=== PATIENT | female | born 1955 | race Asian ===

== ENCOUNTER 2017-11-30 12:30 | Outpatient (RCR) | payer OTHER, SELFPAY ==
--- NOTE | 2017-11-11 08:32 | OT.OP.TRT ---
On November 08, 2017 our therapy services consisting of Speech, Occupational, and Physical therapy transitioned from [employer] electronic documentation system to a new [employer] electronic system. All documentation prior to November 08 can be found under [employer] saved data. From November 08 forward, all medical record documentation will be in [employer] 6.1.
--- NOTE | 2017-12-02 11:21 | OT.OP.TRT ---
Visit Care Team Role Provider Type Ruth Moe MD Attending Provider Non-Staff Primary Care Provider Specialty: Medical Address: [id number] [place] [address], [place], [address] Fax: Email: Occupational Therapy Treatment Note OT Outpatient Treatment Note - Adult Start: 11/23/17 12:51 Freq: Status: Active Protocol: Document 11/30/17 15:30 AMS (Rec: 12/02/17 11:21 AMS [id number]) OT Outpatient Adult Treatment Note Session Time Visit Start Time 12:30 Visit Stop Time 13:18 Total Visit Minutes 48 Visit Information Visit Number N/A Plan of Care Dates 10/11/17-01/02/18 Insurance Information Billing Code Restrictions - see paper chart Setting Treatment Setting Outpatient Care Visit Type Note Type Treatment Note General Information General Information Pt was referred to outpatient OT secondary to CVA. - Subjective Identification Type Name Identification Reconciled With Medical Record Others Present Family Observations I think I am more lactose intolerant now per Louise. Chief Complaint(s) Restricts Loss of Function Marked Degree Effect on Activity Marked Degree Effect on Daily Life Marked Degree Patient/Caregiver Compliance with Home Good Exercise Program Comments w/ family support - Objective Objective Measurements See progress towards goals. Improving tolerance for weight bearing through hand/UE noted . (+) reliance on right UE to move left UE. Decreased spontaneous movement/ incorporation of UE. Short Term Goals 1. Pt will demonstrate 10 degrees active L forearm pronation. 11/11/17= 25% met 2. Pt will demonstrate -20 degrees active L elbow extension. 3. Pt will be able to execute x 10 TT push-ups w/ active WB through left hand/UE w/ min phys assist and max v.c. = mod phys A. 4. Pt will be able to maintain left hand grasp on horizontal grab bar, while actively flexing and extending elbow ( pushing and pulling self towards and away from bar), x 10 trials, with CGA and max verbal/visual cues. 11/30/17= 25% met. Min phys assist 5. Based on self/caregiver report, pt will be able to complete UB dressing w/ CGA 5 out of 7 days w/ max v.c. = min to max phys A depending on day. Figure Model Goals 1. Based on self/caregiver verbal report, pt will be able to complete UB dressing w/ mod I on daily basis. - Treatment 1 Descriptor Functional Activities Standing bar weight shift L<-> R 1 x5 Standing bar weight shift for< ->back 1x10 Standing bar - orientation to midline 1 x 5 Grasp w/ s-s x 3 Tolerance Fair Complexity Upgraded Exercises 6 Descriptor PNF diagonals Side Left Body Position seated Sets 1 Repetitions 10 5 Descriptor Active ROM Sh flex Sh abd Sh ER Elbow ext Forearm pronation Side Left Body Position Sitting Sets 2 Repetitions 10 Complexity Upgraded 4 Descriptor Scapular Mobility Side Left Body Position Sitting 3 Descriptor Passive ROM Side Left Body Position Sitting 2 Descriptor Tone management - Standing 1 Descriptor Tone management - Sitting Side Left - Assessment Patient Response to Treatment Good Rehab Potential Fair Impairments Identified ADLs Attention Balance Coordination/Dexterity Functional Activities Memory Motor Function Weakness Posture Range of Motion Recreational Activities Meaningful Activities Spasticity Stiffness Safety Insight Work Capacity Motor Planning Eye-Hand Coordination Assessment of Overall Progress Improving Assessment of Improvement Improving terrie for WB w/ wrist in ext w/ vertical positioning of hand on wall. Improving functional grasp w/ use of horizontal bar. (+) reliance on right UE to move left UE. Decreased spontaneous movement /incorporation of UE. Home Exercise Program No changes to HEP made. Recommended continued focus on maintaining elbow extension w / grasping of bar/object (for functional mobility) and weight bearing tolerance/ bearing weight through hand. Reviewed with Patient/Caregiver Goals Progress Being Made Home Exercise Program Patient/Caregiver Understanding Good - Plan Therapy Recommendations Continue with Current Program Advance per Rehabilitation Protocol Additional Therapy Recommendations Consult w/ PT Please Sign and Return: I have reviewed this Plan of Care and certify that the skilled therapy services above are required to meet the patient???s needs. Physician Signature Date Printed Name and Credentials Clinical Instructor Signature Printed Name and Credentials
--- NOTE | 2017-12-28 13:20 | OT.OP.TRT ---
Visit Care Team Role Provider Type Ruth Moe MD Attending Provider Non-Staff Primary Care Provider Specialty: Medical Address: [address] [facility], [place], [address] Fax: Email: Occupational Therapy Treatment Note OT Outpatient Treatment Note - Adult Start: 11/23/17 12:51 Freq: Status: Active Protocol: Document 12/28/17 13:18 AMS (Rec: 12/28/17 13:20 AMS [id number]) OT Outpatient Adult Treatment Note Visit Type Note Type Administrative Note - Subjective Observations Phone call to patient made . Short voice mail requesting call back was left at telephone number provided [phone]. Therapist to follow-up as appropriate. - - - -
--- NOTE | 2017-12-29 11:33 | OT.OP.DC ---
Visit Care Team Role Provider Type Ruth Moe MD Attending Provider Non-Staff Primary Care Provider Address: [address] [place], [address] Fax: Email: OT Outpatient OT Outpatient Range of Motion Start: 11/11/17 11:45 Freq: Status: Active Protocol: Document 11/11/17 11:46 AMS (Rec: 11/11/17 12:04 AMS [id number]) OT Outpatient Adult Treatment Note Setting Treatment Setting Outpatient Care Visit Type Note Type Discharge Summary General Information General Information Pt was referred to outpatient OT secondary to CVA. - Subjective Observations Per outpatient clinic front desk assistant staff, patient indicated [id number] that she ' wants to be discharged'. - Objective ROM - Wrist Wrist Range of Motion Measured in Degrees Right Active ROM Testing Position Sitting Wrist Flex AROM (degrees) 0-60 Wrist Flex PROM (degrees) Not Tested Wrist Ext AROM Fingers Open (degrees) WNL Wrist Ext PROM Fingers Open (degrees) Not Tested Wrist Ext AROM Fingers Flexed (degrees) WNL Wrist Ext PROM Fingers Flexed (degrees) Not Tested Left Active ROM Testing Position Sitting Wrist Flex AROM (degrees) 0-40 Wrist Flex PROM (degrees) 0-60 Wrist Ext AROM Fingers Open (degrees) 0-0 Wrist Ext AROM Fingers Flexed (degrees) 0-0 Short Term Goals ALL GOALS DISCHARGED. DISCHARGE PER PATIENT REQUEST 1. Pt will demonstrate 10 degrees active L forearm pronation. 11/11/17= 25% met 2. Pt will demonstrate -20 degrees active L elbow extension. 3. Pt will be able to execute x 10 TT push-ups w/ active WB through left hand/UE w/ min phys assist and max v.c. = mod phys A. 4. Pt will be able to maintain left hand grasp on horizontal grab bar, while actively flexing and extending elbow ( pushing and pulling self towards and away from bar), x 10 trials, with CGA and max verbal/visual cues. 11/30/17= 25% met. Min phys assist 5. Based on self/caregiver report, pt will be able to complete UB dressing w/ CGA 5 out of 7 days w/ max v.c. = min to max phys A depending on day. Breaker Oiler Goals ALL GOALS DISCHARGED. DISCHARGE PER PATIENT REQUEST 1. Based on self/caregiver verbal report, pt will be able to complete UB dressing w/ mod I on daily basis. - - Assessment Assessment of Improvement Per outpatient clinic front desk assistant staff, patient indicated [id number] that she ' wants to be discharged'. Patient to be discharged from outpatient occupational therapy at this time. - Plan Therapy Recommendations Discharge to Home Exercise Program Discharge from Occupational Therapy Additional Therapy Recommendations Discharge per patient request
== END 2017-12-29 15:52 ==
LOC: OT 12:30
PROVIDERS: PCP Internal Medicine; Visit Provider Internal Medicine
DX: I63.9 Cerebral infarction, unspecified (principal); I69.354 Hemiplegia and hemiparesis following cerebral infarction affecting left non-dominant side; R27.8 Other lack of coordination; M62.81 Muscle weakness (generalized)
CPT/HCPCS: 97110; 97112; 97530

== ENCOUNTER 2017-11-30 13:45 | Outpatient (RCR) | payer OTHER, SELFPAY ==
--- NOTE | 2017-11-08 15:08 | PT.OTN ---
On November 08, 2017 our therapy services consisting of Speech, Occupational, and Physical therapy transitioned from [employer] electronic documentation system to a new [employer] electronic system. All documentation prior to November 08 can be found under [employer] saved data. From November 08 forward, all medical record documentation will be in [employer] 6.1.
--- NOTE | 2017-11-08 16:05 | PT.OTN ---
Physical Therapy Treatment Note PT-OP-A Visit Information Start: 11/08/17 15:46 Freq: Status: Active Protocol: Activity Type Activity Date Activity User E-Sign Co-Sign Detail Recorded Client Recorded Date Recorded By Document 11/08/17 14:50 [facility] [id number] 11/08/17 16:05 [facility] 11/08/17 14:50 Out-Patient Physical Therapy Visit Information [Visit Information] -Visit Type Treatment Note -Visit Start Time 14:30 -Visit Stop Time 15:15 -Total Visit Minutes 45 -Visit Number 25 -Number of ASSISTANT PROFESSOR OF PSYCHOLOGY Visits 0 [Evaluation Information] -Evaluation Date 07/14/17 PT-OP-C Subjective Start: 11/08/17 15:46 Freq: Status: Active Protocol: Activity Type Activity Date Activity User E-Sign Co-Sign Detail Recorded Client Recorded Date Recorded By Document 11/08/17 14:50 [facility] [id number] 11/08/17 16:05 [facility] 11/08/17 14:50 OP-PT Subjective [Patient Comments] -Patient Comments My arm is tired, my leg is tired, everything is tired. -Patient Reported Progress Same PT-OP-Q Treatments Start: 11/08/17 15:46 Freq: Status: Active Protocol: Activity Type Activity Date Activity User E-Sign Co-Sign Detail Recorded Client Recorded Date Recorded By Document 11/08/17 14:50 [facility] [id number] 11/08/17 16:05 [facility] 11/08/17 14:50 Therapeutic Exercises [Supine Exercises] 5 -Supine Exercise Name Straight Leg Raise -Side left -Resistance 2# -Equipment Used ankle weight -Reps/Minutes 3 min 4 -Supine Exercise Name Short Arc Quad -Side left -Resistance 2# -Equipment Used ankle weight -Reps/Minutes 3 min 3 -Supine Exercise Name Bridging -Side bilateral -Reps/Minutes 2 min 2 -Supine Exercise Name Supine Marching -Side bilateral -Reps/Minutes 2 min 1 -Supine Exercise Name Hip ER/IR in hook-lying -Side bilateral -Reps/Minutes 3 min Gait Training [Gait Activity] 1 -Description Level Surface Ambulation -Device Used FWW -Level of Assistance Min Ax1 -Distance/Duration 100' x2 Manual Therapy Treatment [Soft Tissue Mobilization] 2 -Body Location Rectus Femoris -Mobilization Type Sustained Pressure -Intensity/Depth Moderate -Body Position Supine 1 -Body Location Psoas -Mobilization Type Sustained Pressure -Intensity/Depth Deep -Body Position Supine [Manual Traction] Lumbar -Details LE Short [place] Traction -Body Position Supine -Reps/Duration 5 min PT-OP-R Modalities Start: 11/08/17 15:46 Freq: Status: Active Protocol: Activity Type Activity Date Activity User E-Sign Co-Sign Detail Recorded Client Recorded Date Recorded By Document 11/08/17 14:50 [facility] [id number] 11/08/17 16:05 [facility] 11/08/17 14:50 Electric Stimulation [Electric Stimulation] Biphasic -Body Location Left Calf -Duration (Minutes) 10 -Intensity 76 mA -Frequency 2 Hz -Pulse Rate 300 usec -Contraction Type Normal -Cycle Continuous -Patient Position Supine PT-OP-T Assessment and Plan Start: 11/08/17 15:46 Freq: Status: Active Protocol: Activity Type Activity Date Activity User E-Sign Co-Sign Detail Recorded Client Recorded Date Recorded By Document 11/08/17 14:50 [facility] [id number] 11/08/17 16:05 [facility] 11/08/17 14:50 Physical Therapy Assessment [Rehab Potential] -Rehabilitation Potential Fair [Impairments] -Impairments Activity Tolerance Balance Coordination Functional Activities Functional Mobility Gait ROM Soft Tissue Mobility Strength Tone [Progress Towards Goals] -Progress Towards Goals Slow Progress due to Medical Issues [Assessment Summary] -Assessment Pt progress slow during recovery of CVA . Pt often complains of tiredness/ fatigue during her treatment sessions, but is willing to work hard during her appointments. Physical Therapy Plan [Frequency and Duration] -Frequency of Treatment 2x/Week -Plan of Care Start Date 10/06/17 -Plan of Care End Date 12/14/17 [Therapeutic Interventions] -Therapeutic Interventions Aquatic Therapy Balance Training Gait Training Home Exercise Program Manual Therapy Neuromuscular Re-education Soft Tissue Mobilization Therapeutic Activities Therapeutic Exercises -Modalities Electric Stimulation [Next Visit Focus/Plan] -Next Visit Plan Gait tolerance, improving tone , strengthening , and balance training Current Diagnoses Cerebral infarction, unspecified (11/08/17) Hemiplegia and hemiparesis following cerebral infarction affecting left non-dominant side (11/08/17) Foot drop, left foot (11/08/17) Muscle weakness (generalized) (11/08/17) Paralytic gait (11/08/17)
--- NOTE | 2017-11-11 12:15 | PT.OTN ---
Current Diagnoses Cerebral infarction, unspecified (11/11/17) Hemiplegia and hemiparesis following cerebral infarction affecting left non-dominant side (11/11/17) Foot drop, left foot (11/11/17) Muscle weakness (generalized) (11/11/17) Paralytic gait (11/11/17) Physical Therapy Treatment Note PT-OP-A Visit Information Start: 11/08/17 15:46 Freq: Status: Active Protocol: Activity Type Activity Date Activity User E-Sign Co-Sign Detail Recorded Client Recorded Date Recorded By Document 11/11/17 12:03 [facility] [id number] 11/11/17 12:15 [facility] 11/11/17 12:03 Out-Patient Physical Therapy Visit Information [Visit Information] -Visit Type Treatment Note -Visit Start Time 11:15 -Visit Stop Time 12:00 -Total Visit Minutes 45 -Visit Number 26 -Number of CHILDREN'S AUTHOR Visits 0 [Evaluation Information] -Evaluation Date 07/14/17 PT-OP-C Subjective Start: 11/08/17 15:46 Freq: Status: Active Protocol: Activity Type Activity Date Activity User E-Sign Co-Sign Detail Recorded Client Recorded Date Recorded By Document 11/11/17 12:03 [facility] [id number] 11/11/17 12:15 [facility] 11/11/17 12:03 OP-PT Subjective [Patient Comments] -Patient Comments I've been helping you out , doing squats every day to get my legs stronger. -Patient Reported Progress Improving PT-OP-Q Treatments Start: 11/08/17 15:46 Freq: Status: Active Protocol: Activity Type Activity Date Activity User E-Sign Co-Sign Detail Recorded Client Recorded Date Recorded By Document 11/11/17 12:03 [employer] [id number] 11/11/17 12:15 [facility] 11/11/17 12:03 Therapeutic Exercises [Supine Exercises] 5 -Supine Exercise Name Straight Leg Raise -Side left -Resistance 2# -Equipment Used ankle weight -Reps/Minutes 3 min 4 -Supine Exercise Name Short Arc Quad -Side left -Resistance 2# -Equipment Used ankle weight -Reps/Minutes 3 min [Sitting Exercises] 1 -Sitting Exercise Name Ankle plantar flexion -Side left -Resistance Lv 5 -Equipment Used T-band Gait Training [Gait Activity] 1 -Description Level Surface Ambulation -Device Used FWW -Level of Assistance Min Ax1 -Distance/Duration 135' /s rest break -Comments Used Lv 5 T- band to limit foot drop Manual Therapy Treatment [Soft Tissue Mobilization] 3 -Body Location Semitendinosus -Mobilization Type Strumming Sustained Pressure -Intensity/Depth Moderate -Body Position Supine 2 -Body Location Rectus Femoris -Mobilization Type Sustained Pressure -Intensity/Depth Moderate -Body Position Supine 1 -Body Location Psoas -Mobilization Type Sustained Pressure -Intensity/Depth Deep -Body Position Supine PT-OP-R Modalities Start: 11/08/17 15:46 Freq: Status: Active Protocol: Activity Type Activity Date Activity User E-Sign Co-Sign Detail Recorded Client Recorded Date Recorded By Document 11/11/17 12:03 [facility] [id number] 11/11/17 12:15 [facility] 11/11/17 12:03 Electric Stimulation [Electric Stimulation] Biphasic -Body Location Left Calf -Duration (Minutes) 10 -Intensity 80 mA -Frequency 2 Hz -Pulse Rate 300 usec -Contraction Type Normal -Cycle Continuous -Patient Position Supine PT-OP-T Assessment and Plan Start: 11/08/17 15:46 Freq: Status: Active Protocol: Activity Type Activity Date Activity User E-Sign Co-Sign Detail Recorded Client Recorded Date Recorded By Document 11/11/17 12:03 [facility] [id number] 11/11/17 12:15 [facility] 11/11/17 12:03 Physical Therapy Assessment [Rehab Potential] -Rehabilitation Potential Fair [Impairments] -Impairments Activity Tolerance Balance Coordination Functional Activities Functional Mobility Gait ROM Soft Tissue Mobility Strength Tone [Progress Towards Goals] -Progress Towards Goals Slow Progress due to Medical Issues [Assessment Summary] -Assessment Pt able to ambulate further than normal today, willing to continue walking past planned end point all the way out to the waiting room. Pt also displayed forceful plantar flexion today, able to press down against the Lv 5 T-band being used to stabilize her drop-foot. Physical Therapy Plan [Frequency and Duration] -Frequency of Treatment 2x/Week -Plan of Care Start Date 10/06/17 -Plan of Care End Date 12/14/17 [Therapeutic Interventions] -Therapeutic Interventions Aquatic Therapy Balance Training Gait Training Home Exercise Program Manual Therapy Neuromuscular Re-education Soft Tissue Mobilization Therapeutic Activities Therapeutic Exercises -Modalities Electric Stimulation [Next Visit Focus/Plan] -Next Visit Plan More focus on left plantar flexion, continued gait tolerance, balance training, generalized left strengthening
--- NOTE | 2017-11-18 15:16 | PT.OTN ---
Current Diagnoses Cerebral infarction, unspecified (11/18/17) Hemiplegia and hemiparesis following cerebral infarction affecting left non-dominant side (11/18/17) Foot drop, left foot (11/18/17) Muscle weakness (generalized) (11/18/17) Paralytic gait (11/18/17) Physical Therapy Treatment Note PT-OP-A Visit Information Start: 11/08/17 15:46 Freq: Status: Active Protocol: Document 11/18/17 14:30 DCW (Rec: 11/18/17 15:16 DCW [id number]) Out-Patient Physical Therapy Visit Information Visit Information Visit Type Treatment Note Visit Start Time 14:30 Visit Stop Time 15:15 Total Visit Minutes 45 Visit Number 27 Number of HAND COOPER HELPER Visits 0 Evaluation Information Evaluation Date 07/14/17 PT-OP-C Subjective Start: 11/08/17 15:46 Freq: Status: Active Protocol: Document 11/18/17 14:30 DCW (Rec: 11/18/17 15:16 DCW [id number]) OP-PT Subjective Patient Comments Patient Comments I'm tired today. I'm feeling very lazy. PT-OP-Q Treatments Start: 11/08/17 15:46 Freq: Status: Active Protocol: Document 11/18/17 14:30 DCW (Rec: 11/18/17 15:16 DCW [id number]) Therapeutic Exercises Sidelying Exercises 2 Sidelying Exercise Name Reverse Clam Shell Side left Comments AAROM 1 Sidelying Exercise Name Clam Shell Side left Comments AAROM Sitting Exercises 1 Sitting Exercise Name Ankle plantar flexion Side left Resistance Lv 5 Equipment Used T-band Gait Training Gait Activity 1 Description Level Surface Ambulation Device Used FWW Level of Assistance Min Ax1 Distance/Duration 125' Comments Used Lv 5 T-band to limit foot drop Manual Therapy Treatment Soft Tissue Mobilization 3 Body Location Semitendinosus Mobilization Type Strumming Sustained Pressure Intensity/Depth Moderate Body Position Supine 2 Body Location Rectus Femoris Mobilization Type Sustained Pressure Intensity/Depth Moderate Body Position Supine 1 Body Location Psoas Mobilization Type Sustained Pressure Intensity/Depth Deep Body Position Supine PT-OP-R Modalities Start: 11/08/17 15:46 Freq: Status: Active Protocol: Document 11/18/17 14:30 DCW (Rec: 11/18/17 15:16 DCW [id number]) Electric Stimulation Electric Stimulation Biphasic Body Location Left Calf Duration (Minutes) 10 Intensity 80 mA Frequency 2 Hz Pulse Rate 300 usec Contraction Type Normal Cycle Continuous Patient Position Supine PT-OP-T Assessment and Plan Start: 11/08/17 15:46 Freq: Status: Active Protocol: Document 11/18/17 14:30 DCW (Rec: 11/18/17 15:16 DCW [id number]) Physical Therapy Assessment Rehab Potential Rehabilitation Potential Fair Impairments Impairments Activity Tolerance Balance Coordination Functional Activities Functional Mobility Gait ROM Soft Tissue Mobility Strength Tone Progress Towards Goals Progress Towards Goals Slow Progress due to Medical Issues Progress Comments CVA Assessment Summary Assessment Pt plantarflexion improved today, able to demonstrate great contraction vs T-band resistance. Despite fatigue, pt ambulation went well today, greatly helped by the use of the Lv 5 T-band for drop-foot support Physical Therapy Plan Frequency and Duration Frequency of Treatment 2x/Week Plan of Care Start Date 10/06/17 Plan of Care End Date 12/14/17 Therapeutic Interventions Therapeutic Interventions Aquatic Therapy Balance Training Gait Training Home Exercise Program Manual Therapy Neuromuscular Re-education Soft Tissue Mobilization Therapeutic Activities Therapeutic Exercises Modalities Electric Stimulation Next Visit Focus/Plan Next Visit Plan Continued ambulation /c drop- foot support, flexibility, strengthening.
--- NOTE | 2017-11-25 15:15 | PT.OTN ---
Current Diagnoses Cerebral infarction, unspecified (11/25/17) Hemiplegia and hemiparesis following cerebral infarction affecting left non-dominant side (11/25/17) Foot drop, left foot (11/25/17) Muscle weakness (generalized) (11/25/17) Paralytic gait (11/25/17) Physical Therapy Treatment Note PT-OP-A Visit Information Start: 11/08/17 15:46 Freq: Status: Active Protocol: Document 11/25/17 14:30 DCW (Rec: 11/25/17 15:15 DCW [id number]) Out-Patient Physical Therapy Visit Information Visit Information Visit Type Treatment Note Visit Start Time 14:30 Visit Stop Time 15:15 Total Visit Minutes 45 Visit Number 28 Number of CHAIR CAR DRIVER Visits 0 Evaluation Information Evaluation Date 07/14/17 PT-OP-C Subjective Start: 11/08/17 15:46 Freq: Status: Active Protocol: Document 11/25/17 14:30 DCW (Rec: 11/25/17 15:15 DCW [id number]) OP-PT Subjective Patient Comments Patient Comments Pt reports she is doing well today, just tired. Patient Reported Progress Improving PT-OP-Q Treatments Start: 11/08/17 15:46 Freq: Status: Active Protocol: Document 11/25/17 14:30 DCW (Rec: 11/25/17 15:15 DCW [id number]) Therapeutic Exercises Supine Exercises 5 Supine Exercise Name Straight Leg Raise Side left Resistance 2# Equipment Used ankle weight Reps/Minutes 3 min 4 Supine Exercise Name Short Arc Quad Side left Resistance 2# Equipment Used ankle weight Reps/Minutes 3 min Sitting Exercises 1 Sitting Exercise Name Ankle plantar flexion Side left Resistance Lv 5 Equipment Used T-band Gait Training Gait Activity 1 Description Level Surface Ambulation Device Used FWW Level of Assistance Min Ax1 Distance/Duration 125' Comments Used Lv 5 T-band to limit foot drop Manual Therapy Treatment Soft Tissue Mobilization 3 Body Location Semitendinosus Mobilization Type Strumming Sustained Pressure Intensity/Depth Moderate Body Position Supine 2 Body Location Rectus Femoris Mobilization Type Sustained Pressure Intensity/Depth Moderate Body Position Supine 1 Body Location Psoas Mobilization Type Sustained Pressure Intensity/Depth Deep Body Position Supine Manual Techniques 1 Type Hamstring - Manual Elongation Body Position Supine PT-OP-R Modalities Start: 11/08/17 15:46 Freq: Status: Active Protocol: Document 11/25/17 14:30 DCW (Rec: 11/25/17 15:15 DCW [id number]) Electric Stimulation Electric Stimulation Biphasic Body Location Left Calf Duration (Minutes) 10 Intensity 80 mA Frequency 2 Hz Pulse Rate 300 usec Contraction Type Normal Cycle Continuous Patient Position Supine PT-OP-T Assessment and Plan Start: 11/08/17 15:46 Freq: Status: Active Protocol: Document 11/25/17 14:30 DCW (Rec: 11/25/17 15:15 DCW [id number]) Physical Therapy Assessment Rehab Potential Rehabilitation Potential Fair Impairments Impairments Activity Tolerance Balance Coordination Functional Activities Functional Mobility Gait ROM Soft Tissue Mobility Strength Tone Progress Towards Goals Progress Towards Goals Slow Progress due to Medical Issues Progress Comments CVA Assessment Summary Assessment Pt did well ambulating with less fatigue, however had trouble with her ankle plantarflexion vs T-band resistance Physical Therapy Plan Frequency and Duration Frequency of Treatment 2x/Week Plan of Care Start Date 10/06/17 Plan of Care End Date 12/14/17 Therapeutic Interventions Therapeutic Interventions Aquatic Therapy Balance Training Gait Training Home Exercise Program Manual Therapy Neuromuscular Re-education Soft Tissue Mobilization Therapeutic Activities Therapeutic Exercises Modalities Electric Stimulation Next Visit Focus/Plan Next Visit Plan Gait training, LE Strengthening, Biphasic E-stim
--- NOTE | 2017-11-30 14:30 | PT.OTN ---
Current Diagnoses Cerebral infarction, unspecified (11/30/17) Hemiplegia and hemiparesis following cerebral infarction affecting left non-dominant side (11/30/17) Foot drop, left foot (11/30/17) Muscle weakness (generalized) (11/30/17) Paralytic gait (11/30/17) Physical Therapy Treatment Note PT-OP-A Visit Information Start: 11/08/17 15:46 Freq: Status: Active Protocol: Document 11/30/17 13:45 DCW (Rec: 11/30/17 14:29 DCW [id number]) Out-Patient Physical Therapy Visit Information Visit Information Visit Type Treatment Note Visit Start Time 13:45 Visit Stop Time 14:30 Total Visit Minutes 45 Visit Number 29 Number of HEEL BREASTER Visits 0 Evaluation Information Evaluation Date 07/14/17 PT-OP-C Subjective Start: 11/08/17 15:46 Freq: Status: Active Protocol: Document 11/30/17 13:45 DCW (Rec: 11/30/17 14:29 DCW [id number]) OP-PT Subjective Patient Comments Patient Comments Pt notes her lateral thigh is hurting today. PT-OP-Q Treatments Start: 11/08/17 15:46 Freq: Status: Active Protocol: Document 11/30/17 13:45 DCW (Rec: 11/30/17 14:29 DCW [id number]) Therapeutic Exercises Supine Exercises 5 Supine Exercise Name Straight Leg Raise Side left Resistance 2# Equipment Used ankle weight Reps/Minutes 3 min 4 Supine Exercise Name Short Arc Quad Side left Resistance 2# Equipment Used ankle weight Reps/Minutes 3 min Sitting Exercises 2 Sitting Exercise Name LAQ Side left 1 Sitting Exercise Name Ankle plantar flexion Side left Resistance Lv 5 Equipment Used T-band Gait Training Gait Activity 1 Description Level Surface Ambulation Device Used FWW Level of Assistance Min Ax1 Distance/Duration 125' Manual Therapy Treatment Soft Tissue Mobilization 1 Body Location Psoas Mobilization Type Sustained Pressure Intensity/Depth Deep Body Position Supine Manual Techniques 2 Type Adductor - Manual Tissue Elongation Body Position Supine 1 Type Hamstring - Manual Elongation Body Position Supine PT-OP-R Modalities Start: 11/08/17 15:46 Freq: Status: Active Protocol: Document 11/30/17 13:45 DCW (Rec: 11/30/17 14:29 DCW [id number]) Electric Stimulation Electric Stimulation Biphasic Body Location Left Calf Duration (Minutes) 10 Intensity 80 mA Frequency 2 Hz Pulse Rate 300 usec Contraction Type Normal Cycle Continuous Patient Position Supine PT-OP-T Assessment and Plan Start: 11/08/17 15:46 Freq: Status: Active Protocol: Document 11/30/17 13:45 DCW (Rec: 11/30/17 14:29 DCW [id number]) Physical Therapy Assessment Rehab Potential Rehabilitation Potential Fair Impairments Impairments Activity Tolerance Balance Coordination Functional Activities Functional Mobility Gait ROM Soft Tissue Mobility Strength Tone Progress Towards Goals Progress Towards Goals Slow Progress due to Medical Issues Progress Comments CVA Assessment Summary Assessment Pt fatigued by the end of her treatment session today. She struggled more than usual with her last activity, SLR. Physical Therapy Plan Frequency and Duration Frequency of Treatment 2x/Week Plan of Care Start Date 10/06/17 Plan of Care End Date 12/14/17 Therapeutic Interventions Therapeutic Interventions Aquatic Therapy Balance Training Gait Training Home Exercise Program Manual Therapy Neuromuscular Re-education Soft Tissue Mobilization Therapeutic Activities Therapeutic Exercises Modalities Electric Stimulation Next Visit Focus/Plan Next Visit Plan Gait training, LE Strengthening, Biphasic E-stim
--- NOTE | 2017-12-29 11:46 | PT.OPDS ---
Current Diagnoses Cerebral infarction, unspecified (11/30/17) Hemiplegia and hemiparesis following cerebral infarction affecting left non-dominant side (11/30/17) Foot drop, left foot (11/30/17) Muscle weakness (generalized) (11/30/17) Paralytic gait (11/30/17) Provider Visit Care Team Role Provider Type Ruth Moe MD Attending Provider Non-Staff Primary Care Provider Specialty: Medical Address: [address] [place] [address], [phone] Fax: Email: Visit Number Visit Number 25 Discharge Summary PT-OP-B Current Condition Start: 11/08/17 15:46 Freq: Status: Active Protocol: Document 12/29/17 11:43 DCW (Rec: 12/29/17 11:46 DCW [id number]) Current Condition History of Current Condition History of Current Condition Please review patient's chart in Therapy Source for full history and initial evaluation PT-OP-T Assessment and Plan Start: 11/08/17 15:46 Freq: Status: Active Protocol: Document 12/29/17 11:43 DCW (Rec: 12/29/17 11:46 DCW [id number]) Physical Therapy Assessment Progress Towards Goals Progress Towards Goals Slow Progress due to Medical Issues Progress Comments CVA Physical Therapy Plan Discharge Physical Therapy Discharge Reasons Patient Request Discharge Comments Pt has not been seen in almost one month. Occupational Therapist phoned and spoke to pt's , who reported she wanted a break from therapy, and requested discharge at this time.
== END 2017-12-29 15:48 ==
LOC: PHYS 13:45
PROVIDERS: PCP Internal Medicine; Visit Provider Internal Medicine
DX: I63.9 Cerebral infarction, unspecified (principal); M62.81 Muscle weakness (generalized); I69.354 Hemiplegia and hemiparesis following cerebral infarction affecting left non-dominant side; R26.1 Paralytic gait; M21.372 Foot drop, left foot
CPT/HCPCS: 97110; 97116; 97140

== ENCOUNTER → 2018-08-28 14:00 | Outpatient (CLI) | payer OTHER, SELFPAY ==
--- NOTE | 2018-08-28 | DI.CT.S_ITS ---
PROCEDURE: CT ANGIO HEAD AND NECK INDICATIONS: history of VERTEBRAL ARTERY ANEURYSM TECHNIQUE: Pre-contrast 4.5 mm thick sections acquired from the foramen magnum to the vertex. After the administration of intravenous contrast, 1 mm thick sections acquired from the aortic arch through the [place]. Post-contrast 4.5 mm thick sections then re-acquired from the foramen magnum to the vertex. 3-dimensional bqwkvvc-[id number] (MIP) and/or volume rendering reformats were acquired of the central intracranial vasculature and neck separately. COMPARISON: [facility], CT, HEAD AND NECK ANGIO, 08/23/2017, 13:31. [facility], CT, HEAD WITHOUT CONTRAST, 01/24/2017, 8:36. [facility], MR, ANGIO NECK WITH CONTRAST, 12/08/2016, 13:58. [facility], MR, ANGIO HEAD WITHOUT CONTRAST, 12/08/2016, 13:44. FINDINGS: Image quality: Excellent. BRAIN: CSF spaces: Ventricles are normal in size and shape. Basal cisterns are patent. No extra-axial fluid collections. Brain: No midline shift. No intracranial bleeds or masses. Martino-white matter interface appears intact. Brainstem ossification can be seen involving the deep white matter of the right frontal lobe. Skull and face: Calvarium and facial bones appear intact, without suspicious lesions. Orbits appear normal. Sinuses: Sinuses and mastoids are clear. HEAD CT ANGIOGRAPHY: Anterior circulation: Intracranial internal carotid arteries are normal in size and flow. The flow within the paired anterior cerebral arteries is normal and symmetric. The right M1 segment is decreased in size compared to the left. There is decreased flow seen throughout the right MCA territory compared to the left. The anterior communicating artery is seen. No aneurysms are seen. Posterior circulation: Within the proximal/distal left vertebral artery, there is a partially calcified aneurysm that measures approximately 5 mm and is similar to prior examinations. Visualized portions of the vertebral arteries otherwise demonstrate normal caliber, and join to form the basilar artery. Flow within the posterior cerebral arteries is normal and symmetric. NECK CT ANGIOGRAPHY: Carotid system: The great vessels demonstrate a conventional anatomy as they arise from the aortic arch. The origins of the common carotid arteries appear patent. The common carotid arteries demonstrate normal caliber and courses. The bifurcation regions demonstrate atherosclerotic irregularity with calcification, which is worse on the left side than on the right. Posterior circulation: The origins of the vertebral arteries both appear widely patent. The more superior extracranial portions of both vertebral arteries also demonstrate normal courses. They join to form a normal appearing basilar artery. Soft tissues: Visualized neck soft tissues demonstrate no suspicious abnormalities. Centrilobular emphysematous changes are seen at the lung apices. Bones: No suspicious bony lesions. Visualized cervical spine appears normally aligned. IMPRESSION: There is a highly stenotic right M1 segment, with poor flow seen within the distal MCA territory. This is similar to prior studies. There is a stable 5 mm partially calcified aneurysm involving the distal left vertebral artery. Calcification can be seen within the deep white matter of the right frontal lobe, which has progressed compared to the prior examination. Any quantitative measurements of stenosis were performed using NASCET criteria. Dictated by: Eric Stephen M.D. on 08/28/2018 at 15:26 Approved by: Eric Stephen M.D. on 08/28/2018 at 15:35
[2018-08-28 14:36] LABS: BUN Creatinine Ratio 18.6 (6-22); Blood Urea Nitrogen 13 mg/dL (7-17); Carbon Dioxide 30 mmol/L (22-32); Chloride 104 mmol/L (98-107); Estimated Glomerular Filt Rate > 60.0 mL/min (>60); Glucose 93 mg/dL (80-110); HEMOLYSIS < 15 (0-50); Potassium 3.1 mmol/L (3.4-5.1); Sodium 142 mmol/L (137-145)
== END ==
PROVIDERS: PCP Internal Medicine; Visit Provider Psychiatry & Neurology Neurology
DX: I72.6 Aneurysm of vertebral artery (principal)
CPT/HCPCS: 36415; 70496; 70498; 80048; 82565; 84520; Q9967

== ENCOUNTER → 2021-01-12 12:09 | Outpatient (CLI) | payer MEDICARE, OTHER, SELFPAY ==
--- NOTE | 2021-01-12 | DI.MRI.S_ITS ---
PROCEDURE: MR HEAD/BRAIN WO/W CON INDICATIONS: Cerebral aneurysm, nonruptured TECHNIQUE: Noncontrast axial T1 spin echo, axial T2 fast spin echo, sagittal and axial FLAIR, coronal T2 fast spin echo, axial gradient echo, axial diffusion and ADC through the brain. After the administration of contrast, axial and coronal T1 spin echo with fat saturation through the brain. COMPARISON: [facility], CT, CT ANGIO HEAD AND NECK, 08/28/2018, 14:43. FINDINGS: Image quality: Excellent. CSF spaces: Basal cisterns are patent. No extra-axial fluid collections. Ventricles are normal in size and shape. Brain: No midline shift. No intracranial bleeds or masses. No abnormal intracranial enhancement. There is cerebral volume loss for age. There is periventricular white matter chronic small vessel ischemic change. The brainstem appears normal. Diffusion-weighted images demonstrate no acute ischemic insults. 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 Aneurysmal dilation with partial calcification of the V4 segment of the left vertebral artery is unchanged. Skull and face: Calvarial marrow is normal in signal. Orbits appear normal. Sinuses: Sinuses and mastoids appear clear. IMPRESSION: 1. No acute intracranial process. 2. Moderate to severe atrophy and chronic microvascular ischemic changes. 3. Unchanged aneurysmal dilation with partial calcification of the V4 segment of the left vertebral artery. Dictated by: Amina Mack M.D. on 01/13/2021 at 11:55 Approved by: Amina Mack M.D. on 01/13/2021 at 11:58
== END ==
PROVIDERS: PCP Internal Medicine; Referring Provider Internal Medicine; Visit Provider Internal Medicine
DX: I67.1 Cerebral aneurysm, nonruptured (principal)
CPT/HCPCS: 70553

== ENCOUNTER → 2021-03-11 12:59 | Outpatient (CLI) | payer MEDICARE, OTHER, SELFPAY ==
--- NOTE | 2021-03-11 | DI.RAD.S_ITS ---
PROCEDURE: FL BARIUM SWALLOW W SPEECH INDICATIONS: Dysphagia, unspecified COMPARISON: None. TECHNIQUE: Examination was conducted in conjunction with speech pathology per standard protocol. In the lateral projection, filming was performed of the patient swallowing. AP projection filming may also be performed with patient swallowing. COMPARISON: FINDINGS: Function: The oral preparatory phase appears delayed. The subsequent oral propulsive phase, pharyngeal phase, and esophageal phase of swallowing also appear delayed . No laryngotracheal penetration or aspiration. No pathologic vallecular pooling. Morphology: No cricopharyngeal bar is identified. No cervical esophageal webs. No Zenker's diverticulum. No strictures. IMPRESSION: No aspiration identified. Dictated by: Henry Mathew M.D. on 03/11/2021 at 16:43 Approved by: Henry Mathew M.D. on 03/11/2021 at 16:44
--- NOTE | 2021-03-13 16:02 | ST.SWALLOW ---
Visit Care Team Role Provider Type Bridget Clemons MD Primary Care Provider Physician Specialty: Internal Medicine Address: [address] [place] [address], [facility] Email: [email or web address] Attending Provider Non-Staff Referring Provider Specialty: Internal Medicine Address: [address] [place] [address], [id number] Email: [email or web address] Modified Barium Swallow Study DRY BOX TENDER Modified Barium Swallow Study Start: 03/11/21 14:44 Freq: Status: Active Protocol: Document 03/11/21 11:36 LNK (Rec: 03/13/21 12:15 LNK [id number]) Modified Barium Swallow Study Total Time Visit Start Time 13:30 Visit Stop Time 14:00 Total Visit Minutes [address] Martino Reason for Referral difficulty swallowing Setting Setting Outpatient Care Patient Information Identification Type Name,Date of Patient History Pt presented for a Modified Barium Swallow Study secondary to difficulty swallowing and frequent cough/choke. pt c/o difficulty with swallowing. Her noted that the pt will choke frequently during meal and on her saliva. He also stated that she does not swallow her saliva, but will instead let it pool in her mouth and then spit it out into kleenex. When asked about swallowing her saliva, pt said thet she didn't like to swallow saliva because it is gross. She stated that when swallowing her Lipitor capsule, it frequently gets stuck in her throat causing coughing and choking. Subjective Observations Pt is a frail woman with left side hemiparesis. She was positioned in the fluoroscopy chair. Directions and instructions described for the pt, who agreed to proceed. Patient Positioning Position View Lateral Imaging Lateral View Textures Administered Trials Presented Thin Liquid via Spoon,Thin Liquid via Cup,[place] Liquid via Spoon,[place] Liquid via Cup,Honey Liquid via Spoon, Regular Textures,Barium Tablet Oral Phase Source: MBSIMP (TM) (C) Bolus Specific Scoring Grid Lip Closure WFL Tongue Control During Bolus Hold WFL Bolus Prep/Mastication WFL Bolus Transport/Lingual Motion WFL A/P Lingual Propulsion Delay No Oral Residue WFL Residue Clearing WFL Nasal Regurgitation No Additional Oral Phase Observations Velum, tongue, and lips were all determined to be WFL. Diadochokineses was WFL. Pt had several missing teeth along upper and lower arches which affected her mastication . She was observed to chew for a long time before swallowing . Pharyngeal Phase Source: MBSIMP (TM) (C) Bolus Specific Scoring Grid Delayed Initiation of Pharyngeal Swallow Yes: Premature spillagage to the valeculla pre-swallow Tongue Base Strength/Range of Motion Mild Impairment Residue Along the Tongue Base Yes Clearance of Residue Along Tongue Base Minimal Impairment Laryngeal Elevation Mild Impairment Anterior Hyoid Movement Mild Impairment Epiglottic Range of Motion Minimal Impairment Vallecular Residue Yes: Moderate amount of residue across all trials Clearance of Vallecular Residue Moderate Impairment Laryngeal Vestibular Closure Mild Impairment Pharyngeal Stripping Wave Moderate Impairment Posterior Pharyngeal Wall Residue Yes Clearance of Posterior Pharyngeal Wall Mild Impairment Residue Upper Esophageal Sphincter Opening Moderate Impairment Residue in the Pyriform Sinuses Yes Clearance of Residue in the Pyriform Moderate Impairment Sinuses Esophageal Clearance Upright Position Moderate Impairment Pharyngoesophageal Backflow Observed No Additional Pharyngeal Phase Observations Premature spillage to the valeculla pre-swallow. Hyolaryngeal elevation appeared to be adequate with complete inversion of the epiglottis. However there was minimal linguapharyngeal contact at the level of the medial pharyngeal constrictor, resulting in moderate to significant pooling within the valeculla that would flow into the pyriform sinuses and remain within the pharynx. A cued second swallow cleared some, but no all pharyngeal residue. Observed weakness of of the posterior pharyngeal wall resulted in poor bolus control to the UES/esophagus. Increased viscosity of the contrast resulted in increased residue remaining within the pharynx that was difficult to clear. Pharyngeal residue was noted at the UES consistently across all trials. There appeared to be restricted UES opening to pass the bolus, which resulted in pooling of contrast. During the 11 mm tablet trial, the tablet was stuck in the vallecula for 7+ seconds, causing the pt to cough/choke on the water used to swallow it. The epiglottis was not inverted at that time, leaving an open airway. Once the tablet dislodged from the valeculla, it remained at the UES for over 3 seconds before passing into the esophagus. The pt was cued to continue drinking the water until the tablet was observed to pass into the esophagus. A/P View Esophageal Observations Esophageal Function The barium tablet presented with the greatest swallowing challenge for the pt. Additionally, contrast residue was noted at the UES. These observations suggest restricted UES opening. This may account for the pt's sensation of globus, her reluctance to swallow saliva, pills lodging in her throat and her frequent coughing during meals . Another consideration is the residual effect of her prior CVA on the pt's swallow. It is likely the muscles and the structures on the left side of pt's pharynx were impacted by the CVA. Clinical Impressions Dysphagia Type mild oropharyngeal dysphagia; UES dysfunction Patient Appropriate for Therapy Yes: pending outcome of GI assessment Recommendations Diet Liquids Order Thin Diet Order Dysphagia Advanced Medication Recommendation Crushed in Carrier Aspiration Precautions Recommended Precautions Upright at 90 Degrees,Frequent Rest Periods,Small Bites/Sips Treatment Plan Therapy Recommendations Outpatient Speech Therapy,Base of Tongue Exercises, Compensatory Strategy Education Recommended Referrals Primary Care Physician,GI Consult Compensatory Strategies Recommendations Sitting Upright (90 deg),Small Bites and Sips
== END ==
PROVIDERS: PCP Internal Medicine; Referring Provider Student in an Organized Health Care Education/Training Program; Visit Provider Student in an Organized Health Care Education/Training Program
DX: I69.354 Hemiplegia and hemiparesis following cerebral infarction affecting left non-dominant side (principal); R13.10 Dysphagia, unspecified
CPT/HCPCS: 74230; 92611

== ENCOUNTER 2021-03-24 08:48 | Emergency (ER) | payer MEDICARE, OTHER, SELFPAY ==
[2021-03-24] VITALS (18 sets, daily range): BP systolic 114–148; BP diastolic 58–84; PULSE 70–120; RESP 20–30; TEMP 36.9; O2SAT 93–96; BMI 21.2
--- NOTE | 2021-03-24 09:05 | DI.RAD.S_ITS ---
PROCEDURE: XR CHEST 1V INDICATIONS: SHORTNESS OF BREATH TECHNIQUE: One view of the chest was acquired. COMPARISON: [facility], , CHEST 1 VIEW, 01/24/2017, 9:06. FINDINGS: Surgical changes and devices: None. Lungs and pleura: There is a moderate right effusion. Mild appearance of bilateral increased pulmonary vascularity is present. Mediastinum: Mediastinal contours appear normal. Heart size is enlarged. Bones and chest wall: No suspicious bony lesions. Overlying soft tissues appear unremarkable. IMPRESSION: Moderate effusion is present. Recommend interval follow-up to document resolution and exclude presence of underlying mass lesion, which could be of malignant etiology. Mild increased vascularity suggestive of edema. Dictated by: Amina Mack M.D. on 03/24/2021 at 9:34 Approved by: Amina Mack M.D. on 03/24/2021 at 9:35
--- NOTE | 2021-03-24 09:06 | ED.CHESTPAIN ---
HPI - Chest Pain General Chief Complaint: Shortness of Breath/Dyspnea Stated Complaint: Difficulty Breathing/post stroke Time Seen by Provider: 03/24/21 08:54 Source: patient and family () Mode of arrival: Wheelchair Limitations: no limitations History of Present Illness HPI narrative: This is a 65-year-old female who comes the emergency department with 3 days of anterior chest pain with some radiation to the upper thoracic region. Shortness of breath that is been slowly increasing. Her states for the last 3 weeks she has had very little energy. They have noted she has had some nasal drip waking her dysphagia which is chronic secondary to prior stroke worse as well as a worsened cough. He states she has had a decreased appetite as well which is atypical for her. They deny any fevers. No swelling in extremities. She denies any diaphoresis. No nausea or vomiting. No abdominal pain. She denies radiation of pain to her arms or neck. Patient has had normal bowel movements. She has had normal urination. She has chronic left-sided deficit prior to stroke which he is anticoagulated with Eliquis. She is on losartan, Norvasc as well as Lipitor for a statin. She is allergic to possibly cephazolin but was unsure of the name of the medication. No prior surgeries. No cardiac stents in the past. Patient does not have a history of heart arrhythmias or cardiorenal artery disease that is known. Related Data Home Medications Medication Instructions Recorded Confirmed ACETAMINOPHEN 650 mg PO Q4HP PRN #0 01/24/17 apixaban 5 mg tablet (Eliquis) 5 mg BID #0 01/24/17 atorvastatin 80 mg tablet 80 mg PO HS #0 01/24/17 docusate sodium 100 mg capsule 100 mg PO PRN PRN #0 01/24/17 metoprolol succinate 25 mg 25 mg PO QDAY #0 01/24/17 tablet,extended release 24 hr (Toprol XL) multivitamin (Multiple Vitamins) 1 tab PO QDAY #0 01/24/17 potassium chloride 10 mEq 10 meq PO Q DAY #0 01/24/17 tablet,extended release (Klor-Con) sennosides 8.6 mg tablet (senna) 8.6 mg PO BIDP PRN #0 01/24/17 amlodipine 2.5 mg tablet (Norvasc) 2.5 mg PO PRN PRN #0 04/22/17 Previous Rx's Medication Instructions Recorded pregabalin 50 mg capsule (Lyrica) 50 mg PO BID #60 cap 12/27/18 pregabalin 50 mg capsule (Lyrica) 50 mg PO BID #60 cap 12/27/18 Allergies Allergy/AdvReac Type Severity Reaction Status Date / Time cefazolin [CEFAZOLIN] Allergy Unknown Verified 03/24/21 09:07 questionable Allergy Unknown unable to Uncoded 12/27/18 14:38 enter using this tool - SEE PMHx Review of Systems Review of Systems ROS Unobtainable: All systems reviewed & are unremarkable except as noted in HPI and below Patient History Surgical History Status post laparoscopy Family History Father Hypertension Social History Smoking Status: Former smoker Exam Narrative Exam Narrative: GENERAL: Alert and oriented x three, thin small statured female in mild distress. HEENT: Head normocephalic, atraumatic, EOMI, pupils reactive, face symmetric, moist mucous membranes NECK: Supple, full range of motion CARDIOVASCULAR: Irregularly irregular rate and rhythm without murmurs, rubs or gallops. No bilateral lower extremity swelling. No JVD noted. RESPIRATORY: Breath sounds equal bilaterally, no wheezes rales or rhonchi. ABDOMEN: Soft, nontender. Normoactive bowel sounds all 4 quadrants. No guarding or rebound, rigidity, no mass. Nondistended. : No CVA tenderness EXTREMITIES: Normal range of motion, no clubbing or edema. Neurovascularly intact NEUROLOGICAL: Cranial nerves II through XII grossly intact. Moving all extremities SKIN: Warm, dry, no petechiae, no rashes or lesions. Initial Vital Signs Initial Vital Signs: Vital Signs Temperature 98.5 F 03/24/21 08:50 Pulse Rate 108 H 03/24/21 08:50 Respiratory Rate 20 03/24/21 08:50 Blood Pressure 136/68 03/24/21 08:50 Pulse Oximetry 96 03/24/21 08:50 Course Orders Ordered: ED Orders 03/24/21 11:55 CT angio chest Stat Discontinued Medications Sodium Chloride (Normal Saline 0.9%) 1,000 mls @ 150 mls/hr IV CONT DELMA Last Infusion: 03/24/21 14:13 Dose: 0 mls/hr Documented by: Admin: 03/24/21 09:42 Dose: 150 mls/hr Documented by: SUHA Metoprolol Tartrate (Metoprolol Ir 25 Mg Tablet) 25 mg PO NOW ONE Stop: 03/24/21 10:56 Last Admin: 03/24/21 12:40 Dose: 25 mg Documented by: SHAYY Metoprolol Tartrate (Metoprolol Tartrate 5 Mg/5 Ml Inj) 5 mg IV Q5M DELMA Stop: 03/24/21 11:26 Last Admin: 03/24/21 14:13 Dose: Not Given Documented by: Admin: 03/24/21 14:13 Dose: Not Given Documented by: Admin: 03/24/21 11:46 Dose: 5 mg Documented by: SHAYY Potassium Chloride (Potassium Chloride 20 Meq/15 Ml Udc) 40 meq PO NOW ONE Stop: 03/24/21 10:11 Last Admin: 03/24/21 10:20 Dose: 40 meq Documented by: SUHA Consultations Consultation #1: Spoke with Dr. Alvarado, who recommends having some metoprolol on board and adjusting medication for rate control and d/c home. This time he would defer observation or admission she appears to be clinically stable. Consultation #2: Dr. Bridget Clemons, agrees with current plan. She is aware that patient's metoprolol as bumped up to twice daily. Plan to hold her Eliquis starting this evening and she will have the office bilingual receptionist is call them to help facilitate treatment and short-term follow-up. Vital Signs Vital signs: Vital Signs - 8 hr 03/24/21 11:46 03/24/21 11:55 03/24/21 12:00 Pulse Rate 86 110 H 84 Respiratory Rate 30 H 25 H 27 H Blood Pressure 148/72 H 130/66 120/63 Pulse Oximetry 94 93 93 03/24/21 12:30 03/24/21 12:44 03/24/21 13:00 Pulse Rate 87 92 H 90 Respiratory Rate 25 H 30 H 24 Blood Pressure 147/77 H 136/72 Pulse Oximetry 93 93 95 03/24/21 13:30 03/24/21 14:00 Pulse Rate 76 70 Respiratory Rate 23 25 H Blood Pressure 114/67 120/70 Pulse Oximetry 95 95 MDM - Chest Pain Lab Data Result diagrams: 03/24/21 09:25 03/24/21 09:25 Labs: Lab Results 03/24/21 03/24/21 03/24/21 Range/Units 09:25 09:25 09:25 WBC 8.0 (4.5-11.0) X10^3/uL RBC 4.86 (4.0-5.2) X10^6/uL Hgb 14.0 (12.0-16.0) g/dL Hct 42.1 (36-46) % MCV 86.7 (80-100) fL MCH 28.9 (26-34) PG MCHC 33.3 (30-36) % RDW 13.3 (11.6-14.8) % Plt Count 237 (150-400) X10^3/uL Neut % (Auto) 77.3 H (50-75) % Lymph % (Auto) 11.4 L (25-40) % [place] % (Auto) 10.3 (3-14) % Eos % (Auto) 0.4 L (2-4) % Baso % (Auto) 0.6 (0-2) % Neut # (Auto) 6200 (1916-7372) /uL Lymph # (Auto) 900 L (0051-6814) /uL [place] # (Auto) 800 (0-900) /uL Eos # (Auto) 0 (0-450) /uL Baso # (Auto) 0 (0-100) /uL PT (10.1-12.7) SECONDS INR (0.9-1.3) APTT (26.4-36.2) SECONDS Sodium 140 (137-145) mmol/L Potassium 3.3 L (3.4-5.1) mmol/L Chloride 107 (98-107) mmol/L Carbon Dioxide 23 (22-32) mmol/L BUN 10 (7-17) mg/dL Creatinine 0.71 (0.52-1.04) mg/dL Estimated GFR > 60.0 (>60) mL/min BUN/Creatinine Ratio 14.1 (6-22) Glucose 113 H (80-110) mg/dL Calcium 9.2 (8.4-10.2) mg/dL Magnesium 1.6 (1.6-2.3) mg/dL Total Creatine Kinase 53 (30-135) U/L CK-MB (CK-2) TNP CK-MB (CK-2) Rel Index TNP Troponin I < 0.012 (0.01-0.034) ng/mL NT-Pro-B Natriuret Pep 125 H (<125) pg/mL TSH 1.80 (0.47-4.68) uIU/mL SARS-CoV-2 (PCR) (Negative) 03/24/21 03/24/21 Range/Units 09:25 09:25 WBC (4.5-11.0) X10^3/uL RBC (4.0-5.2) X10^6/uL Hgb (12.0-16.0) g/dL Hct (36-46) % MCV (80-100) fL MCH (26-34) PG MCHC (30-36) % RDW (11.6-14.8) % Plt Count (150-400) X10^3/uL Neut % (Auto) (50-75) % Lymph % (Auto) (25-40) % [place] % (Auto) (3-14) % Eos % (Auto) (2-4) % Baso % (Auto) (0-2) % Neut # (Auto) (6874-5233) /uL Lymph # (Auto) (5063-4030) /uL [place] # (Auto) (0-900) /uL Eos # (Auto) (0-450) /uL Baso # (Auto) (0-100) /uL PT 23.5 H (10.1-12.7) SECONDS INR 2.0 H (0.9-1.3) APTT 39 H (26.4-36.2) SECONDS Sodium (137-145) mmol/L Potassium (3.4-5.1) mmol/L Chloride (98-107) mmol/L Carbon Dioxide (22-32) mmol/L BUN (7-17) mg/dL Creatinine (0.52-1.04) mg/dL Estimated GFR (>60) mL/min BUN/Creatinine Ratio (6-22) Glucose (80-110) mg/dL Calcium (8.4-10.2) mg/dL Magnesium (1.6-2.3) mg/dL Total Creatine Kinase (30-135) U/L CK-MB (CK-2) CK-MB (CK-2) Rel Index Troponin I (0.01-0.034) ng/mL NT-Pro-B Natriuret Pep (<125) pg/mL TSH (0.47-4.68) uIU/mL SARS-CoV-2 (PCR) Negative (Negative) Imaging Data Chest x-ray: My Impression: large effusion. cardiomegaly? Radiologist's Impression: 7 Yasmin Castro, DO [facility] Routine Call Back Main ED ?8? My List ?6? Waiting ?1? Surge ED ?0? R04? Hayde Garcia? 84 F? With Doctor? 1h 55m? 3-Urgent? ?? Fall? Fall out of bed? ?? 03/24/21 07:47? REG ER? Draft? Yasmin Crabtree daughter Guerline [phone] for updates Order BP Pulse 92 Resp Temp O2 Sat 91% Imaging MAR R05? Kyler Causey? 25 M? Ready for Discharge? 13h 42m? 3-Urgent? ?? Shortness of Breath/Dyspnea? WEAKNESS HEAVY BREATHING? Travel, C19S/S? 03/24/21 01:56? REG ER? Signed? Brandie Song to pickle solution maker at [address]: [place] [phone] covid neg Order BP 165/91 Pulse 84 Resp 16 Temp O2 Sat 98% (RA) COVID19 -N... ?Chem Lactate (L... ?Urinalysis... ?Complete B... D Dimer St... Lipase Sta... Magnesium ... Imaging Respirator... MAR Microbiolo... General (R... R06? Cuca Mcnair? 72 F? Pending Admission? 2h 43m? 3-Urgent? ?? Abdominal Pain? pain/cramping in URQ of abdomen? ?? 03/24/21 07:25? REG ER? Draft? Yasmin Crabtree Gio-done Horesh-next type and screen ordered. Order BP 158/80 Pulse 82 Resp Temp O2 Sat 98% Imaging ?Urinalysis... Prothrombi... ?Complete B... ?Chem Lipase Sta... ?Partial Th... MAR NPO Diet POC/ROSELIA Type and S... COVID19 - ... R07? Thu Wallace M? 47 F? With Doctor? 47m? 3-Urgent? ?? Abdominal Pain? Intense Abdominal Pain? C19S/S? 03/24/21 09:09? REG ER? Draft? Yasmin Ronnygerardo Zahida A Order BP Pulse 65 Resp 29 Temp O2 Sat 100% ?Chem Lipase Sta... MAR EKG-12 Kelly... NPO Diet Complete B... Cardiac mo... Imaging POC/ROSELIA R08? Louise Gale N? 65 F? With Doctor? 51m? 2-Emergent? ?? Shortness of Breath/Dyspnea? Difficulty Breathing/post stroke? ISO, C19S/S? 03/24/21 08:54? REG ER? Draft? Yasmin Ronnygerardo Order BP Pulse 107 Resp 25 Temp O2 Sat 96% Imaging MAR COVID19 -N... Complete B... Thyroid St... Troponin &... Cardiac mo... Chem Magnesium ... NT-proBNP ... EKG-12 Kelly... Partial Th... Prothrombi... R10? Pool Esposito? 40 M? Ready for Discharge? 9h 29m? 5-Nonurgent? VC: 1? Extremity Problem,Nontraumatic? R face pain? ?? 03/24/21 06:30? REG ER? Draft? [place] ignore any lab/ekg orders. wrong patient. Order BP 127/73 Pulse 80 Resp Temp 98.5 F O2 Sat 94% (RA) Imaging MAR Chem Complete B... Thyroid St... Troponin &... Magnesium ... NT-proBNP ... Cardiac mo... R13? Daren Orr? 18 M? Boarding? 19h 25m? 2-Emergent? VC: 1? Psychiatric Symptoms? Psych? SA, ?? 03/23/21 14:22? REG ER? I-Signed? Yasmin Stewart Padmin[address] [facility] will most likely have an acute bed available sometime Tu ..... on DCR hold 1753, DCR seeking beds medically cleared door shut/seclusion 1:1 obs labs from previous visit Order BP 114/56 Pulse 76 Resp 16 Temp 98.5 F O2 Sat 97% (RA) ?Urinalysis... ?Urine Drug... MAR Consult to... Restraints... General (R... Restraints... Restraints... Restraints... Restraints... WRoom? Erick Del Rio? 4y 2m M? Registered? 20m? No Chief Complaint? LT FOOT PAIN/WALKING FUNNY? ?? No Time Seen? REG ER? No Document? Sign Up Order Imaging - XR chest 1V Louise Gale??65??F??1955 ? Allergy/Adv: cefazolin, [questionable] (More??) Close Imaging ACTIVITY DATE EXAM STATUS AUTHOR 03/24/21 09:05 Chest X-Ray Signed Amina Mack Imaging Reports Close Chest X-Ray (Signed) Amina Mack - 03/24/21 Launch?[place] [address] XRay Report Signed Patient: Louise Gale MR#: [id number] : 1955 Acct:[id number] Age/Sex: 65 / F Date of Service: 03/24/21 Loc: ED Accession Number: [id number] ?? Procedure: XR chest 1V Ordering Provider: Yasmin Castro D.O. PROCEDURE:? XR CHEST 1V ? INDICATIONS:? SHORTNESS OF BREATH ? TECHNIQUE:? One view of the chest was acquired.? ? COMPARISON:? [facility], , CHEST 1 VIEW, 01/24/2017, 9:06. ? FINDINGS:? ? Surgical changes and devices:? None.? ? Lungs and pleura:? There is a moderate right effusion.? Mild appearance of bilateral increased pulmonary vascularity is present. ? Mediastinum:? Mediastinal contours appear normal.? Heart size is enlarged. ? Bones and chest wall:? No suspicious bony lesions.? Overlying soft tissues appear unremarkable.? ? IMPRESSION:? Moderate effusion is present.? Recommend interval follow-up to document resolution and exclude presence of underlying mass lesion, which could be of malignant etiology. ? Mild increased vascularity suggestive of edema. ? ? Dictated by: Amina Mack M.D. on 03/24/2021 at 9:34 ? ? Approved by: Amina Mack M.D. on 03/24/2021 at 9:35?? CT scan - chest: Radiologist's Impression: Launch?Image [address] [address] [address] Scan Report Signed Patient: Louise Gale MR#: [id number] : 1955 Acct:[id number] Age/Sex: 65 / F Date of Service: 03/24/21 Loc: ED Accession Number: [id number] ?? Procedure: CT angio chest Ordering Provider: Yasmin Castro D.O. PROCEDURE:? CT ANGIO CHEST ? INDICATIONS:? right pleural effusion, sob, ? ca ? TECHNIQUE:? After the administration of intravenous contrast, 2 mm thick sections acquired from the pulmonary apices to the posterior costophrenic angles.? 3-dimensional maximum intensity projection (MIP) coronal and sagittal reformats were then acquired through the thorax.? For radiation dose reduction, the following was used:? automated exposure control, adjustment of mA and/or kV according to patient size.? ? COMPARISON:? [facility], MR, MR HEAD/BRAIN WO/W CON, 01/12/2021, 12:36. ? FINDINGS:? Image quality:? Excellent.? ? Pulmonary arteries:? Pulmonary arteries are normal in size, and demonstrate no intraluminal filling defects to suggest central pulmonary embolism.? ? Lungs and pleura:? There is complete collapse of the right lower lobe and right middle lobe.? There are innumerable, too numerous to count tiny bilateral pulmonary nodules which suggest possible miliary spread of tumor.? There is patchy consolidation in the right upper lobe.? There is a moderate to severe right pleural effusion with mild loculation.? The fluid has a significant subpulmonic component. ? Mediastinum:? Heart size is normal, with puyb-bw-rxfheyuo pericardial effusion.? Coronary artery calcifications.? There is probable confluent mediastinal adenopathy in the subcarinal lesion.? There is a right paratracheal lymph node which is enlarged, measuring approximately 1.5 x 2.0 cm on image 45/5.? There is a prominent left brachiocephalic lymph node.? Thoracic aorta is normal in caliber and enhancement.? Esophagus is normal in caliber, without hiatal hernia.? ? Bones and chest wall:? No suspicious bony lesions.? Ribs and thoracic spine appear intact throughout.? Thyroid gland is unremarkable.? No axillary or supraclavicular adenopathy.? ? Abdomen:? Visualized upper abdominal solid organs appear normal in the early arterial phase of enhancement.? ? IMPRESSION:? ? 1. No evidence acute pulmonary emboli. ? 2. Collapse of the right lower lobe and right middle lobe. ? 3. Extensive, innumerable bilateral tiny pulmonary nodules most likely represents miliary spread of tumor.? Also possible is a diffuse infectious process. ? 4. Mediastinal adenopathy. ? 5. Moderately large right pleural effusion. ? 6. Rgdu-fc-whrjnnax pericardial effusion. ? 7. Coronary artery disease.? ? ? Dictated by: Ajit Suarez M.D. on 03/24/2021 at 12:44 ? ? Approved by: Ajit Suarez M.D. on 03/24/2021 at 12:55?? ECG Data Attestation: I personally reviewed and interpreted this ECG as follows: Prior ECG tracings: available for review Interpretation: Irregularly irregular rhythm, no clear ST changes in comparison from 01/24/2017 but patient does have significant artifact in V1 through 3. Rate approximately 140 with a QRS of 50 and a QTC of 393. MDM Narrative Medical decision making narrative: This is a 65-year-old female who comes emergency department with worsening shortness of breath and chest pain. Patient has a pleural effusion on the right, she initially had what appeared to be maybe some AFib RVR and her rate self controlled in the department. She had some additional episodes and was given metoprolol IV as well as additional dose of oral metoprolol and patient was rate controlled in the department. Patient is properly anticoagulated. She and I discussed that she does need a thoracentesis. At this time she does not appear to need emergently and recommendations are to hold her Eliquis for 48 hours. I also confirmed this with Radiology I spoke with her primary care physician who is happy to help facilitate and she was given an outpatient prescription as well as asked to contact her PCP in order to confirm the ability to set up an appointment. Her primary care is aware that were holding her Eliquis starting tonight. Both patient and are aware of potential risks for recurrent stroke off Eliquis. They were also asked to return if she has any worsening shortness of breath, chest pain or other concerning symptoms. She deferred anything additional for pain beyond Tylenol at home. Patient has never been hypoxic in the department had elevated respiratory rate. Discharge Plan Departure Patient Disposition: Home Clinical Impression: Pleural effusion Instructions: Pleural Effusion Activity Restrictions/Additional Instructions: You have a pleural effusion noted today on your imaging. This is certainly the cause of your shortness of breath today. I do recommend you having a thoracentesis, this may help your symptoms but can also be used to diagnose the source of the fluid. Your findings today are concerning for cancer but are not confirmed. It is recommended that you hold your Eliquis for 48 hours prior to having your thoracentesis and typically to resume your Eliquis [address] Clemons to help you schedule this procedure this week. I would hold your Eliquis dose tonight in anticipation of having your thoracentesis. Increase your metoprolol to twice daily for the short term. Continue all our home medications as prescribed. Please return for new or worsening symptom, lightheadedness or passing out, or any chest pain, shortness of breath, persistent vomiting or new swelling of your extremities. Prescriptions: No Action multivitamin [Multiple Vitamins] 1 EACH tablet 1 tab PO QDAY Qty: 0 RF: 0 atorvastatin 80 MG tablet 80 mg PO HS Qty: 0 RF: 0 apixaban [Eliquis] 5 MG tablet 5 mg BID Qty: 0 RF: 0 metoprolol succinate [Toprol XL] 25 MG tablet extended release 24 hr 25 mg PO QDAY Qty: 0 RF: 0 potassium chloride [Klor-Con 10] 10 MEQ tablet extended release 10 meq PO Q DAY Qty: 0 RF: 0 ACETAMINOPHEN 650 mg PO Q4HP PRNQty: 0 RF: 0 sennosides [senna] 8.6 MG tablet 8.6 mg PO BIDP PRNQty: 0 RF: 0 docusate sodium 100 MG capsule 100 mg PO PRN PRNQty: 0 RF: 0 amlodipine [Norvasc] 2.5 MG tablet 2.5 mg PO PRN PRNQty: 0 RF: 0 Lyrica 50 mg capsule 50 mg PO BID Qty: 60 RF: 2 Lyrica 50 mg capsule 50 mg PO BID Qty: 60 RF: 2 Referrals: Bridget Clemons MD [Primary Care Provider] -
[2021-03-24] MEDS: SODIUM CHLORIDE 0.9% 1,000 ML 150 ML IV (09:42)
[2021-03-24 09:45] LABS: Add Manual Diff / Slide Review NO; Basophils Absolute Auto 0 /uL (0-100); Basophils Percent Auto 0.6 % (0-2); Eosinophils Absolute Auto 0 /uL (0-450); Eosinophils Percent Auto 0.4 % (2-4); Hematocrit 42.1 % (36-46); Lymphocytes Absolute Auto 900 /uL (1100-4500); Lymphocytes Percent Auto 11.4 % (25-40); Mean Corpuscular HGB Conc 33.3 % (30-36); Mean Corpuscular Hemoglobin 28.9 PG (26-34); Mean Corpuscular Volume 86.7 fL (80-100); Monocytes Absolute Auto 800 /uL (0-900); Monocytes Percent Auto 10.3 % (3-14); Neutrophils Absolute Auto 6200 /uL (1500-7000); Neutrophils Percent Auto 77.3 % (50-75); Platelet Count 237 X10^3/uL (150-400); Red Blood Cell Count 4.86 X10^6/uL (4.0-5.2); Red Cell Distribution Width 13.3 % (11.6-14.8)
[2021-03-24 09:47] LABS: Prothrombin Time 23.5 SECONDS (10.1-12.7)
[2021-03-24 09:49] LABS: PTT Partial Thromboplastin Tim 39 SECONDS (26.4-36.2)
[2021-03-24 09:51] LABS: BUN Creatinine Ratio 14.1 (6-22); Blood Urea Nitrogen 10 mg/dL (7-17); Calcium 9.2 mg/dL (8.4-10.2); Carbon Dioxide 23 mmol/L (22-32); Chloride 107 mmol/L (98-107); Creatine Kinase 53 U/L (30-135); Estimated Glomerular Filt Rate > 60.0 mL/min (>60); Glucose 113 mg/dL (80-110); HEMOLYSIS < 15 (0-50); Magnesium 1.6 mg/dL (1.6-2.3); Potassium 3.3 mmol/L (3.4-5.1); Sodium 140 mmol/L (137-145)
[2021-03-24 10:03] LABS: NT-proBNP (BNP-Adult 18+) 125 pg/mL (<125); Troponin I < 0.012 ng/mL (0.01-0.034)
[2021-03-24 10:04] LABS: COVID19 -Nasal RAPID Negative (Negative)
[2021-03-24] MEDS: POTASSIUM CHLORIDE 20 MEQ/15 ML UDC 40 MEQ PO (10:20)
[2021-03-24] MEDS: METOPROLOL TARTRATE 5 MG/5 ML INJ IV (11:46)
--- NOTE | 2021-03-24 11:55 | DI.CT.S_ITS ---
PROCEDURE: CT ANGIO CHEST INDICATIONS: right pleural effusion, sob, ? ca TECHNIQUE: After the administration of intravenous contrast, 2 mm thick sections acquired from the pulmonary apices to the posterior costophrenic angles. 3-dimensional maximum intensity projection (MIP) coronal and sagittal reformats were then acquired through the thorax. For radiation dose reduction, the following was used: automated exposure control, adjustment of mA and/or kV according to patient size. COMPARISON: [facility], MR, MR HEAD/BRAIN WO/W CON, 01/12/2021, 12:36. FINDINGS: Image quality: Excellent. Pulmonary arteries: Pulmonary arteries are normal in size, and demonstrate no intraluminal filling defects to suggest central pulmonary embolism. Lungs and pleura: There is complete collapse of the right lower lobe and right middle lobe. There are innumerable, too numerous to count tiny bilateral pulmonary nodules which suggest possible miliary spread of tumor. There is patchy consolidation in the right upper lobe. There is a moderate to severe right pleural effusion with mild loculation. The fluid has a significant subpulmonic component. Mediastinum: Heart size is normal, with scbq-ev-kroncrtl pericardial effusion. Coronary artery calcifications. There is probable confluent mediastinal adenopathy in the subcarinal lesion. There is a right paratracheal lymph node which is enlarged, measuring approximately 1.5 x 2.0 cm on image 45/5. There is a prominent left brachiocephalic lymph node. Thoracic aorta is normal in caliber and enhancement. Esophagus is normal in caliber, without hiatal hernia. Bones and chest wall: No suspicious bony lesions. Ribs and thoracic spine appear intact throughout. Thyroid gland is unremarkable. No axillary or supraclavicular adenopathy. Abdomen: Visualized upper abdominal solid organs appear normal in the early arterial phase of enhancement. IMPRESSION: 1. No evidence acute pulmonary emboli. 2. Collapse of the right lower lobe and right middle lobe. 3. Extensive, innumerable bilateral tiny pulmonary nodules most likely represents miliary spread of tumor. Also possible is a diffuse infectious process. 4. Mediastinal adenopathy. 5. Moderately large right pleural effusion. 6. Qspc-py-jsweifhm pericardial effusion. 7. Coronary artery disease. Dictated by: Ajit Suarez M.D. on 03/24/2021 at 12:44 Approved by: Ajit Suarez M.D. on 03/24/2021 at 12:55
[2021-03-24] MEDS: METOPROLOL IR 25 MG TABLET PO (12:40)
== END 2021-03-24 14:35 | disposition home or self-care (01) ==
PROVIDERS: Emergency Provider Emergency Medicine; PCP Internal Medicine
DX: J90 Pleural effusion, not elsewhere classified (principal); M54.6 Pain in thoracic spine; I69.354 Hemiplegia and hemiparesis following cerebral infarction affecting left non-dominant side; Z79.01 Long term (current) use of anticoagulants; Z20.822 Contact with and (suspected) exposure to COVID-19
CPT/HCPCS: 36415; 71045; 71275; 80048; 82550; 83735; 83880; 84443; 84484; 85025; 85610; 85730; 87635; 93005; 93010; 96360; 96361; 99284; C9803

== ENCOUNTER → 2021-03-30 13:05 | Outpatient (CLI) | payer MEDICARE, OTHER, SELFPAY ==
--- NOTE | 2021-03-30 | PATH_ITS ---
Note [facility] Accession Number: [id number] TESTS RESULT FLAG UNITS REF RANGE LAB Clinician Provided Cytology Information No. 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 THIS INTERPRETATION INCLUDES EVALUATION OF A CELL BLOCK. COMMENT Immunohistochemical stains were performed to characterize the cells of interest with the following results: Results: SIRISHA-EP4: Weak postive reactivity MOC-31: Weak positive reactivity CK7: Positive CK20: Negative TTF-1: Positive Napsin: Positive TREVER-3: Negative CDX2: Negative Villin: Negative WT-1: Negative PAX-8: Negative Interpretation: The expression of SIRISHA-EP4 and MOC-31 without WT-1 is consistent with adenocarcinoma. The expression of TTF-1 and Napsin is consistent with pulmonary origin. The absence of organ specific markers CDX2, GATA3, and PAX8 mitigate against colonic, breast/urothelial, or gynecologic origin, respectively. As part of routine quality assurance supervisor body, Dr. Kemp also reviewed this case and agrees with the interpretation. Dr. Peng gave preliminary results to Georgie in Goldie Martino PA-C's office on 04/02/2021. * All control stains showed appropriate reactivity. This test was developed and its performance characteristics determined by [facility]. It has not been cleared or approved by the U.S. Food and Drug Administration. The FDA has determined that such clearance or approval is not necessary. This test is used for clinical purposes. It should not be regarded as investigational or for research. Pathologist ICD10: 02 J91.0 Signed out by: 02 Marcela Peng MD, Pathologist NPI- [id number] Performed by: Karl Jauregui, Motor Pool Clerk ([facility]) Gross description: 01 60 CC, YELLOW, CLOUDY RECEIVED: FRESH IN ORANGE CAP CONTAINER. /[facility] 03/31/2021 0944 Local FLAG LEGEND: L-Low Normal,H-High Normal,LL-Alert Low,HH-Alert High <-Panic Low,>-Panic High,A-Abnormal,AA-Critical Abnormal Performed at: 01 =Z [facility] [address] [place] [address], [place] [address] Bridger Richter MD, 02 [facility] [id number] [place] [phone] Marcela Peng MD, Performed at: 01 [facility] [address] [place] [address] [address], [place], [place] [id number] MD Bridger Richter MD Phone: [phone]
--- NOTE | 2021-03-30 | DI.US.S_ITS ---
PROCEDURE: US THORACENTESIS INDICATIONS: Pleural effusion, not elsewhere classified TECHNIQUE: The indications, alternatives, benefits, risks, and complications of the procedure were explained to the patient. Written informed consent was obtained and placed in the chart. The chest was examined sonographically, and an appropriate site was chosen for thoracentesis. The skin was prepared and draped in the usual sterile fashion, and 1% lidocaine was infiltrated from the skin down through the pleural surface. A 19-gauge catheter-covered needle was then introduced into the pleural space, the catheter was advanced and the needle was withdrawn, and thereafter pleural fluid was aspirated. The catheter was then removed and a dressing was applied. COMPARISON: [facility], CR, XR CHEST 1V, 03/30/2021, 14:55. [facility], CT, CT ANGIO CHEST, 03/24/2021, 12:10. FINDINGS: Access site: Right hemithorax. Needle: One-Step centesis catheter with introducer needle. Fluid volume and description: 620 cc clear straw-colored Fluid sent for diagnostic testing: The cytology, total protein, protein miscellaneous, LD, Gram stain, LDH Medications: 1% lidocaine for local anaesthesia. Complications: None; post-procedural chest radiograph is negative pneumothorax. Procedure was well tolerated by the patient. IMPRESSION: Successful ultrasound-guided diagnostic and therapeutic right thoracentesis. Dictated by: Leonel Junior M.D. on 03/31/2021 at 7:33 Approved by: Leonel Junior M.D. on 03/31/2021 at 7:36
[2021-03-30 13:43] LABS: INR 1.1 (0.9-1.3); Prothrombin Time 12.7 SECONDS (10.1-12.7)
--- NOTE | 2021-03-30 15:00 | DI.RAD.S_ITS ---
PROCEDURE: XR CHEST 1V INDICATIONS: POST THORACENTESIS TECHNIQUE: One view of the chest was acquired. COMPARISON: [facility], CT, CT ANGIO CHEST, 03/24/2021, 12:10. [facility], CR, XR CHEST 1V, 03/24/2021, 9:08. FINDINGS: Surgical changes and devices: None. Lungs and pleura: Diffuse prominence of the interstitial markings. Low lung volumes. No pneumothorax post right thoracentesis. Moderate right pleural effusion, decreased. Mediastinum: Mediastinal contours appear normal. Heart size is normal. Bones and chest wall: No suspicious bony lesions. Overlying soft tissues appear unremarkable. IMPRESSION: No pneumothorax post right thoracentesis. Moderate right pleural effusion, decreased. Dictated by: Leonel Junior M.D. on 03/30/2021 at 15:33 Approved by: Leonel Junior M.D. on 03/30/2021 at 15:35
[2021-03-30 15:55] LABS: LDH Body Fluid 1279 U/L; Total Protein Body Fluid 3.8 g/dL
== END ==
PROVIDERS: PCP Internal Medicine; Referring Provider Student in an Organized Health Care Education/Training Program; Visit Provider Student in an Organized Health Care Education/Training Program
DX: J90 Pleural effusion, not elsewhere classified (principal)
CPT/HCPCS: 32555; 36415; 71045; 83615; 84157; 85610; 87070; 87075; 87205

== ENCOUNTER 2021-04-08 12:59 | Emergency (ER) | payer MEDICARE, OTHER, SELFPAY ==
[2021-04-08] VITALS (24 sets, daily range): BP systolic 112–164; BP diastolic 61–79; PULSE 56–156; RESP 20–30; TEMP 36.6; O2SAT 94–98; BMI 17.2
--- NOTE | 2021-04-08 12:59 | DI.RAD.S_ITS ---
PROCEDURE: XR CHEST 1V INDICATIONS: sob TECHNIQUE: One view of the chest was acquired. COMPARISON: [facility], CR, XR CHEST 1V, 03/30/2021, 14:55. FINDINGS: Surgical changes and devices: None. Lungs and pleura: Moderate right pleural effusion with adjacent atelectasis has increased since 03/30/21. No pneumothorax. Patchy left basilar opacities. Mediastinum: Mediastinal contours appear normal. Heart size is normal. Bones and chest wall: No suspicious bony lesions. Overlying soft tissues appear unremarkable. IMPRESSION: Increasing moderate right pleural effusion with adjacent atelectasis since 03/30/21. Dictated by: Henry Mathew M.D. on 04/08/2021 at 14:56 Approved by: Henry Mathew M.D. on 04/08/2021 at 14:58
--- NOTE | 2021-04-08 13:25 | DI.US.S_ITS ---
PROCEDURE: US PERIPH VENOUS LOW EXTREM LT INDICATIONS: LEFT FOOT SWELLING TECHNIQUE: Real-time imaging, as well as color and pulse Doppler interrogation, were performed of the lower extremity deep veins from the inguinal ligament to the popliteal fossa. COMPARISON: None. FINDINGS: The common femoral, femoral and popliteal veins are normally compressible, and free of intraluminal thrombus. Color and pulse Doppler demonstrate normal phasic intraluminal flow. There is normal augmentation response to distal compression maneuver. IMPRESSION: No DVT in the left lower extremity. Dictated by: Isidoro Ruby M.D. on 04/08/2021 at 13:55 Approved by: Isidoro Ruby M.D. on 04/08/2021 at 13:55
--- NOTE | 2021-04-08 13:27 | ED_ITS ---
HPI - SOB/Dyspnea <Rita Lambert PA-C - Last Filed: 04/08/21 17:14> General Chief Complaint: Shortness of Breath/Dyspnea Stated Complaint: Fatigue,loss appetite and SOB Time Seen by Provider: 04/08/21 13:10 Source: patient Mode of arrival: EMS Limitations: no limitations History of Present Illness HPI Narrative: Brayden presents today with chief complaint of worsening shortness of breath and fatigue that has been getting worse over the last 5 days. She recently presented with somewhat similar symptoms that resulted in a pleurocentesis which drained approximately 650 mL of fluid from her lung on March 30. This is the 1st time that she has had any fluid drained. She has past medical history of CVA which has given her left-sided strength deficits. states that she is usually able to transfer herself from bed to chair but he has been needing to lift her up the last 2 days which is abnormal. They have also noticed some swelling in her left ankle that has not improved. For the pleurocentesis, she had to be off of her Eliquis which she takes daily for 4 days total. The swelling was noticed about 3 days after getting back on Eliquis. She denies any obvious chest pain, headache, dizziness, burning with urination, fever or any other acute concerns or complaints at this time. She is not vaccinated against COVID. Related Data Home Medications Medication Instructions Recorded Confirmed ACETAMINOPHEN 650 mg PO Q4HP PRN #0 MDD 3000 01/24/17 04/09/21 apixaban 5 mg tablet (Eliquis) 5 mg BID #0 01/24/17 04/09/21 metoprolol succinate 25 mg 25 mg PO QDAY #0 01/24/17 04/09/21 tablet,extended release 24 hr (Toprol XL) multivitamin (Multiple Vitamins) 1 tab PO QDAY #0 01/24/17 04/09/21 potassium chloride 10 mEq 10 meq PO Q DAY #0 01/24/17 04/09/21 tablet,extended release (Klor-Con) sennosides 8.6 mg tablet (senna) 8.6 mg PO BIDP PRN #0 01/24/17 04/09/21 amlodipine 2.5 mg tablet (Norvasc) 5 mg PO DAILY #0 04/22/17 04/09/21 losartan 100 mg tablet 100 mg PO DAILY 04/09/21 04/09/21 Allergies Allergy/AdvReac Type Severity Reaction Status Date / Time cefazolin [CEFAZOLIN] Allergy Unknown Verified 04/08/21 13:10 questionable Allergy Unknown unable to Uncoded 12/27/18 14:38 enter using this tool - SEE PMHx Review of Systems <Rita Lambert PA-C - Last Filed: 04/08/21 17:14> Review of Systems Narrative: As per HPI Patient History <Rita Lambert PA-C - Last Filed: 04/08/21 17:14> Surgical History Status post laparoscopy Family History Father Hypertension Social History Smoking Status: Former smoker Smoking Status: Former smoker alcohol intake frequency: other Substance Use Type: does not use Exam <Rita Lambert PA-C - Last Filed: 04/08/21 17:14> Narrative Exam Narrative: Const General: cooperative, ill-appearing Nutritional Appearance: Thin Orientation: alert and oriented x3 HENMT Head: normal to inspection and normocephalic Ears: hearing grossly normal bilaterally, external ears normal, TM's normal bilaterally, EAC's normal, mastoids normal and no periauricular adenopathy Nose: external nose normal, nares normal and no nasal discharge Face and sinus: normal facial exam, sinuses nontender and face symmetric Mouth: oral mucosae normal, lip normal, tongue normal and moist mucous membranes Teeth and gingiva: dentition normal and gingiva normal Throat: posterior oropharynx normal, uvula midline, no postnasal drainage and no uvular edema Eyes periorbital findings normal, eyelids normal, conjunctivae normal Neck: normal visual inspection, full ROM, no lymphadenopathy, no meningeal signs and supple Resp Slightly increased work of breathing, mild crackles noted left lower lung bang. Cardio regular rate regular rhythm Heart Sounds: no gallops, no murmurs and no rubs Extrem Left lower leg edema. Nontender. Neuro Alert and Oriented x3, normal gait, moves all extremities. Initial Vital Signs Initial Vital Signs: Vital Signs Temperature 97.8 F 04/08/21 13:05 Pulse Rate 56 L 04/08/21 13:05 Respiratory Rate 24 04/08/21 13:05 Blood Pressure 145/66 H 04/08/21 13:05 Pulse Oximetry 96 04/08/21 13:05 <Koby Greco DO - Last Filed: 04/09/21 06:50> Initial Vital Signs Initial Vital Signs: Vital Signs Temperature 97.8 F 04/08/21 13:05 Pulse Rate 56 L 04/08/21 13:05 Respiratory Rate 24 04/08/21 13:05 Blood Pressure 145/66 H 04/08/21 13:05 Pulse Oximetry 96 04/08/21 13:05 Course <Rita Lambert PA-C - Last Filed: 04/08/21 17:14> Course Course Narrative: I went in and discussed the findings with the patient and her . We extensively discussed the tumor as well as evidence of probable metastatic disease in the lung bang, fluid around the heart, and fluid in the lung. 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 Dr. Chanel with cardiology cold with her interpretation of the echocardiogram. She notes a pericardial effusion with no evidence of tamponade at this time. She recommended mild fluid resuscitation to keep blood pressures up but no further intervention at this time. She does not think that this needs to be drained emergently. Orders Ordered: ED Orders 04/08/21 22:04 EKG-12 Lead Stat 04/09/21 03:05 Troponin I Stat 04/09/21 04:15 PTT [Partial Thromboplastin Time] Q6H 04/09/21 10:15 PTT [Partial Thromboplastin Time] Q6H 04/09/21 16:15 PTT [Partial Thromboplastin Time] Q6H 04/09/21 22:15 Partial Thromboplastin Time DAILY 04/10/21 22:15 Partial Thromboplastin Time DAILY 04/11/21 22:15 Partial Thromboplastin Time DAILY 04/12/21 22:15 Partial Thromboplastin Time DAILY 04/13/21 22:15 Partial Thromboplastin Time DAILY 04/14/21 22:15 Partial Thromboplastin Time DAILY Heparin Sodium/Dextrose (Heparin Drip) 25,000 unit in 500 mls @ 9.253 mls/hr IV CONT DELMA; Protocol Last Titration: 04/09/21 05:51 Dose: 4.28 units/kg/hr, 3.3 mls/hr Documented by: Titration: 04/09/21 04:45 Dose: 0 units/kg/hr, 0 mls/hr Documented by: Admin: 04/08/21 22:31 Dose: 12 units/kg/hr, 9.253 mls/hr Documented by: SHABBIR Discontinued Medications Aspirin (Aspirin 81 Mg Chew Tab) 324 mg PO NOW ONE Stop: 04/08/21 22:05 Last Admin: 04/08/21 22:17 Dose: 324 mg Documented by: SHABBIR Heparin Sodium (Porcine) (Heparin 5,000 Unit/Ml Vial) 4,000 unit IV NOW ONE Stop: 04/08/21 22:09 Last Admin: 04/08/21 22:18 Dose: 4,000 unit Documented by: SHABBIR Sodium Chloride (Normal Saline 0.9%) 1,000 mls @ 150 mls/hr IV BOLUS ONE Stop: 04/09/21 01:05 Last Infusion: 04/09/21 02:51 Dose: 0 mls/hr Documented by: Admin: 04/08/21 18:53 Dose: 150 mls/hr Documented by: LUDMILA Vital Signs Vital signs: Vital Signs - 8 hr 04/08/21 23:00 04/08/21 23:30 04/09/21 00:00 Pulse Rate 83 82 101 H Respiratory Rate 20 21 24 Blood Pressure 118/61 122/65 Pulse Oximetry 04/09/21 00:01 04/09/21 00:30 04/09/21 01:00 Pulse Rate 92 H 81 88 Respiratory Rate 25 H 35 H 48 H Blood Pressure 110/72 111/62 123/71 Pulse Oximetry 04/09/21 01:30 04/09/21 02:00 04/09/21 02:30 Pulse Rate 80 82 83 Respiratory Rate 20 21 21 Blood Pressure 104/59 L 119/71 111/66 Pulse Oximetry 96 95 95 04/09/21 03:00 04/09/21 03:30 04/09/21 03:41 Pulse Rate 93 H 90 84 Respiratory Rate 24 25 H 25 H Blood Pressure 129/79 113/56 L Pulse Oximetry 95 04/09/21 04:00 04/09/21 04:30 04/09/21 05:00 Pulse Rate 80 82 80 Respiratory Rate 19 21 11 L Blood Pressure 110/59 L 114/73 113/64 Pulse Oximetry 04/09/21 05:30 04/09/21 06:00 Pulse Rate 98 H 88 Respiratory Rate 22 45 H Blood Pressure 136/61 131/73 Pulse Oximetry 95 95 <Koby Greco, DO - Last Filed: 04/09/21 06:50> Orders Ordered: ED Orders 04/08/21 22:04 EKG-12 Lead Stat 04/09/21 03:05 Troponin I Stat 04/09/21 04:15 PTT [Partial Thromboplastin Time] Q6H 04/09/21 10:15 PTT [Partial Thromboplastin Time] Q6H 04/09/21 16:15 PTT [Partial Thromboplastin Time] Q6H 04/09/21 22:15 Partial Thromboplastin Time DAILY 04/10/21 22:15 Partial Thromboplastin Time DAILY 04/11/21 22:15 Partial Thromboplastin Time DAILY 04/12/21 22:15 Partial Thromboplastin Time DAILY 04/13/21 22:15 Partial Thromboplastin Time DAILY 04/14/21 22:15 Partial Thromboplastin Time DAILY Heparin Sodium/Dextrose (Heparin Drip) 25,000 unit in 500 mls @ 9.253 mls/hr IV CONT DELMA; Protocol Last Titration: 04/09/21 05:51 Dose: 4.28 units/kg/hr, 3.3 mls/hr Documented by: Titration: 04/09/21 04:45 Dose: 0 units/kg/hr, 0 mls/hr Documented by: Admin: 04/08/21 22:31 Dose: 12 units/kg/hr, 9.253 mls/hr Documented by: SHABBIR Discontinued Medications Aspirin (Aspirin 81 Mg Chew Tab) 324 mg PO NOW ONE Stop: 04/08/21 22:05 Last Admin: 04/08/21 22:17 Dose: 324 mg Documented by: SHABBIR Heparin Sodium (Porcine) (Heparin 5,000 Unit/Ml Vial) 4,000 unit IV NOW ONE Stop: 04/08/21 22:09 Last Admin: 04/08/21 22:18 Dose: 4,000 unit Documented by: SHABBIR Sodium Chloride (Normal Saline 0.9%) 1,000 mls @ 150 mls/hr IV BOLUS ONE Stop: 04/09/21 01:05 Last Infusion: 04/09/21 02:51 Dose: 0 mls/hr Documented by: Admin: 04/08/21 18:53 Dose: 150 mls/hr Documented by: LUDMILA Vital Signs Vital signs: Vital Signs - 8 hr 04/08/21 23:00 04/08/21 23:30 04/09/21 00:00 Pulse Rate 83 82 101 H Respiratory Rate 20 21 24 Blood Pressure 118/61 122/65 Pulse Oximetry 04/09/21 00:01 04/09/21 00:30 04/09/21 01:00 Pulse Rate 92 H 81 88 Respiratory Rate 25 H 35 H 48 H Blood Pressure 110/72 111/62 123/71 Pulse Oximetry 04/09/21 01:30 04/09/21 02:00 04/09/21 02:30 Pulse Rate 80 82 83 Respiratory Rate 20 21 21 Blood Pressure 104/59 L 119/71 111/66 Pulse Oximetry 96 95 95 04/09/21 03:00 04/09/21 03:30 04/09/21 03:41 Pulse Rate 93 H 90 84 Respiratory Rate 24 25 H 25 H Blood Pressure 129/79 113/56 L Pulse Oximetry 95 04/09/21 04:00 04/09/21 04:30 04/09/21 05:00 Pulse Rate 80 82 80 Respiratory Rate 19 21 11 L Blood Pressure 110/59 L 114/73 113/64 Pulse Oximetry 04/09/21 05:30 04/09/21 06:00 Pulse Rate 98 H 88 Respiratory Rate 22 45 H Blood Pressure 136/61 131/73 Pulse Oximetry 95 95 MDM - SOB/Dyspnea <Rita Lambert PA-C - Last Filed: 04/08/21 17:14> Lab Data Result diagrams: 04/09/21 03:05 04/08/21 12:59 Labs: Lab Results 04/08/21 04/08/21 04/08/21 Range/Units 12:59 13:11 14:00 WBC 7.0 (4.5-11.0) X10^3/uL RBC 4.96 (4.0-5.2) X10^6/uL Hgb 14.6 (12.0-16.0) g/dL Hct 44.0 (36-46) % MCV 88.7 (80-100) fL MCH 29.4 (26-34) PG MCHC 33.2 (30-36) % RDW 14.6 (11.6-14.8) % Plt Count 269 (150-400) X10^3/uL Neut % (Auto) 81.4 H (50-75) % Lymph % (Auto) 8.1 L (25-40) % Edmunds % (Auto) 9.8 (3-14) % Eos % (Auto) 0.3 L (2-4) % Baso % (Auto) 0.4 (0-2) % Neut # (Auto) 5700 (1289-8205) /uL Lymph # (Auto) 600 L (8699-6953) /uL Edmunds # (Auto) 700 (0-900) /uL Eos # (Auto) 0 (0-450) /uL Baso # (Auto) 0 (0-100) /uL APTT (26.4-36.2) SECONDS D-Dimer (<230) ng/mL Sodium 140 (137-145) mmol/L Potassium 3.6 (3.4-5.1) mmol/L Chloride 105 (98-107) mmol/L Carbon Dioxide 27 (22-32) mmol/L BUN 14 (7-17) mg/dL Creatinine 0.69 (0.52-1.04) mg/dL Estimated GFR > 60.0 (>60) mL/min BUN/Creatinine Ratio 20.3 (6-22) Glucose 117 H (80-110) mg/dL Lactate (0.7-2.1) mmol/L Calcium 10.2 (8.4-10.2) mg/dL Total Bilirubin 0.6 (0.2-1.3) mg/dL AST 50 H (14-36) IU/L ALT 28 (<35) IU/L Alkaline Phosphatase 115 (38-126) U/L Total Creatine Kinase 36 (30-135) U/L CK-MB (CK-2) TNP CK-MB (CK-2) Rel Index TNP Troponin I 0.070 H (0.01-0.034) ng/mL NT-Pro-B Natriuret Pep (<125) pg/mL Total Protein 6.6 (6.3-8.2) g/dL Albumin 4.0 (3.5-5.0) g/dL Globulin 2.6 (1.7-4.1) g/dL Albumin/Globulin Ratio 1.5 (1.0-2.8) Procalcitonin (<0.5) ng/mL SARS-CoV-2 (PCR) Negative (Negative) 04/08/21 04/08/21 04/08/21 Range/Units 14:00 14:00 14:00 WBC (4.5-11.0) X10^3/uL RBC (4.0-5.2) X10^6/uL Hgb (12.0-16.0) g/dL Hct (36-46) % MCV (80-100) fL MCH (26-34) PG MCHC (30-36) % RDW (11.6-14.8) % Plt Count (150-400) X10^3/uL Neut % (Auto) (50-75) % Lymph % (Auto) (25-40) % Edmunds % (Auto) (3-14) % Eos % (Auto) (2-4) % Baso % (Auto) (0-2) % Neut # (Auto) (6653-3893) /uL Lymph # (Auto) (8527-7057) /uL Edmunds # (Auto) (0-900) /uL Eos # (Auto) (0-450) /uL Baso # (Auto) (0-100) /uL APTT (26.4-36.2) SECONDS D-Dimer 717 H (<230) ng/mL Sodium (137-145) mmol/L Potassium (3.4-5.1) mmol/L Chloride (98-107) mmol/L Carbon Dioxide (22-32) mmol/L BUN (7-17) mg/dL Creatinine (0.52-1.04) mg/dL Estimated GFR (>60) mL/min BUN/Creatinine Ratio (6-22) Glucose (80-110) mg/dL Lactate 1.5 (0.7-2.1) mmol/L Calcium (8.4-10.2) mg/dL Total Bilirubin (0.2-1.3) mg/dL AST (14-36) IU/L ALT (<35) IU/L Alkaline Phosphatase (38-126) U/L Total Creatine Kinase (30-135) U/L CK-MB (CK-2) CK-MB (CK-2) Rel Index Troponin I (0.01-0.034) ng/mL NT-Pro-B Natriuret Pep 609 H (<125) pg/mL Total Protein (6.3-8.2) g/dL Albumin (3.5-5.0) g/dL Globulin (1.7-4.1) g/dL Albumin/Globulin Ratio (1.0-2.8) Procalcitonin (<0.5) ng/mL SARS-CoV-2 (PCR) (Negative) 04/08/21 04/08/21 04/08/21 Range/Units 14:00 21:05 21:05 WBC (4.5-11.0) X10^3/uL RBC (4.0-5.2) X10^6/uL Hgb (12.0-16.0) g/dL Hct (36-46) % MCV (80-100) fL MCH (26-34) PG MCHC (30-36) % RDW (11.6-14.8) % Plt Count (150-400) X10^3/uL Neut % (Auto) (50-75) % Lymph % (Auto) (25-40) % Edmunds % (Auto) (3-14) % Eos % (Auto) (2-4) % Baso % (Auto) (0-2) % Neut # (Auto) (4819-1816) /uL Lymph # (Auto) (3550-8263) /uL Edmunds # (Auto) (0-900) /uL Eos # (Auto) (0-450) /uL Baso # (Auto) (0-100) /uL APTT 34 (26.4-36.2) SECONDS D-Dimer (<230) ng/mL Sodium (137-145) mmol/L Potassium (3.4-5.1) mmol/L Chloride (98-107) mmol/L Carbon Dioxide (22-32) mmol/L BUN (7-17) mg/dL Creatinine (0.52-1.04) mg/dL Estimated GFR (>60) mL/min BUN/Creatinine Ratio (6-22) Glucose (80-110) mg/dL Lactate (0.7-2.1) mmol/L Calcium (8.4-10.2) mg/dL Total Bilirubin (0.2-1.3) mg/dL AST (14-36) IU/L ALT (<35) IU/L Alkaline Phosphatase (38-126) U/L Total Creatine Kinase (30-135) U/L CK-MB (CK-2) CK-MB (CK-2) Rel Index Troponin I 0.423 H* (0.01-0.034) ng/mL NT-Pro-B Natriuret Pep (<125) pg/mL Total Protein (6.3-8.2) g/dL Albumin (3.5-5.0) g/dL Globulin (1.7-4.1) g/dL Albumin/Globulin Ratio (1.0-2.8) Procalcitonin 0.08 (<0.5) ng/mL SARS-CoV-2 (PCR) (Negative) 04/09/21 04/09/21 04/09/21 Range/Units 03:05 03:05 04:15 WBC (4.5-11.0) X10^3/uL RBC (4.0-5.2) X10^6/uL Hgb 13.5 (12.0-16.0) g/dL Hct 41.4 (36-46) % MCV (80-100) fL MCH (26-34) PG MCHC (30-36) % RDW (11.6-14.8) % Plt Count (150-400) X10^3/uL Neut % (Auto) (50-75) % Lymph % (Auto) (25-40) % Edmunds % (Auto) (3-14) % Eos % (Auto) (2-4) % Baso % (Auto) (0-2) % Neut # (Auto) (9665-4618) /uL Lymph # (Auto) (0437-5626) /uL Edmunds # (Auto) (0-900) /uL Eos # (Auto) (0-450) /uL Baso # (Auto) (0-100) /uL APTT 214 H* D (26.4-36.2) SECONDS D-Dimer (<230) ng/mL Sodium (137-145) mmol/L Potassium (3.4-5.1) mmol/L Chloride (98-107) mmol/L Carbon Dioxide (22-32) mmol/L BUN (7-17) mg/dL Creatinine (0.52-1.04) mg/dL Estimated GFR (>60) mL/min BUN/Creatinine Ratio (6-22) Glucose (80-110) mg/dL Lactate (0.7-2.1) mmol/L Calcium (8.4-10.2) mg/dL Total Bilirubin (0.2-1.3) mg/dL AST (14-36) IU/L ALT (<35) IU/L Alkaline Phosphatase (38-126) U/L Total Creatine Kinase (30-135) U/L CK-MB (CK-2) CK-MB (CK-2) Rel Index Troponin I 0.534 H* (0.01-0.034) ng/mL NT-Pro-B Natriuret Pep (<125) pg/mL Total Protein (6.3-8.2) g/dL Albumin (3.5-5.0) g/dL Globulin (1.7-4.1) g/dL Albumin/Globulin Ratio (1.0-2.8) Procalcitonin (<0.5) ng/mL SARS-CoV-2 (PCR) (Negative) <Koby Greco, - Last Filed: 04/09/21 06:50> Lab Data Labs: Lab Results 04/08/21 04/08/21 04/08/21 Range/Units 12:59 13:11 14:00 WBC 7.0 (4.5-11.0) X10^3/uL RBC 4.96 (4.0-5.2) X10^6/uL Hgb 14.6 (12.0-16.0) g/dL Hct 44.0 (36-46) % MCV 88.7 (80-100) fL MCH 29.4 (26-34) PG MCHC 33.2 (30-36) % RDW 14.6 (11.6-14.8) % Plt Count 269 (150-400) X10^3/uL Neut % (Auto) 81.4 H (50-75) % Lymph % (Auto) 8.1 L (25-40) % Edmunds % (Auto) 9.8 (3-14) % Eos % (Auto) 0.3 L (2-4) % Baso % (Auto) 0.4 (0-2) % Neut # (Auto) 5700 (8291-2286) /uL Lymph # (Auto) 600 L (8311-4543) /uL Edmunds # (Auto) 700 (0-900) /uL Eos # (Auto) 0 (0-450) /uL Baso # (Auto) 0 (0-100) /uL APTT (26.4-36.2) SECONDS D-Dimer (<230) ng/mL Sodium 140 (137-145) mmol/L Potassium 3.6 (3.4-5.1) mmol/L Chloride 105 (98-107) mmol/L Carbon Dioxide 27 (22-32) mmol/L BUN 14 (7-17) mg/dL Creatinine 0.69 (0.52-1.04) mg/dL Estimated GFR > 60.0 (>60) mL/min BUN/Creatinine Ratio 20.3 (6-22) Glucose 117 H (80-110) mg/dL Lactate (0.7-2.1) mmol/L Calcium 10.2 (8.4-10.2) mg/dL Total Bilirubin 0.6 (0.2-1.3) mg/dL AST 50 H (14-36) IU/L ALT 28 (<35) IU/L Alkaline Phosphatase 115 (38-126) U/L Total Creatine Kinase 36 (30-135) U/L CK-MB (CK-2) TNP CK-MB (CK-2) Rel Index TNP Troponin I 0.070 H (0.01-0.034) ng/mL NT-Pro-B Natriuret Pep (<125) pg/mL Total Protein 6.6 (6.3-8.2) g/dL Albumin 4.0 (3.5-5.0) g/dL Globulin 2.6 (1.7-4.1) g/dL Albumin/Globulin Ratio 1.5 (1.0-2.8) Procalcitonin (<0.5) ng/mL SARS-CoV-2 (PCR) Negative (Negative) 04/08/21 04/08/21 04/08/21 Range/Units 14:00 14:00 14:00 WBC (4.5-11.0) X10^3/uL RBC (4.0-5.2) X10^6/uL Hgb (12.0-16.0) g/dL Hct (36-46) % MCV (80-100) fL MCH (26-34) PG MCHC (30-36) % RDW (11.6-14.8) % Plt Count (150-400) X10^3/uL Neut % (Auto) (50-75) % Lymph % (Auto) (25-40) % Edmunds % (Auto) (3-14) % Eos % (Auto) (2-4) % Baso % (Auto) (0-2) % Neut # (Auto) (0761-6136) /uL Lymph # (Auto) (1601-0091) /uL Edmunds # (Auto) (0-900) /uL Eos # (Auto) (0-450) /uL Baso # (Auto) (0-100) /uL APTT (26.4-36.2) SECONDS D-Dimer 717 H (<230) ng/mL Sodium (137-145) mmol/L Potassium (3.4-5.1) mmol/L Chloride (98-107) mmol/L Carbon Dioxide (22-32) mmol/L BUN (7-17) mg/dL Creatinine (0.52-1.04) mg/dL Estimated GFR (>60) mL/min BUN/Creatinine Ratio (6-22) Glucose (80-110) mg/dL Lactate 1.5 (0.7-2.1) mmol/L Calcium (8.4-10.2) mg/dL Total Bilirubin (0.2-1.3) mg/dL AST (14-36) IU/L ALT (<35) IU/L Alkaline Phosphatase (38-126) U/L Total Creatine Kinase (30-135) U/L CK-MB (CK-2) CK-MB (CK-2) Rel Index Troponin I (0.01-0.034) ng/mL NT-Pro-B Natriuret Pep 609 H (<125) pg/mL Total Protein (6.3-8.2) g/dL Albumin (3.5-5.0) g/dL Globulin (1.7-4.1) g/dL Albumin/Globulin Ratio (1.0-2.8) Procalcitonin (<0.5) ng/mL SARS-CoV-2 (PCR) (Negative) 04/08/21 04/08/21 04/08/21 Range/Units 14:00 21:05 21:05 WBC (4.5-11.0) X10^3/uL RBC (4.0-5.2) X10^6/uL Hgb (12.0-16.0) g/dL Hct (36-46) % MCV (80-100) fL MCH (26-34) PG MCHC (30-36) % RDW (11.6-14.8) % Plt Count (150-400) X10^3/uL Neut % (Auto) (50-75) % Lymph % (Auto) (25-40) % Edmunds % (Auto) (3-14) % Eos % (Auto) (2-4) % Baso % (Auto) (0-2) % Neut # (Auto) (9729-6849) /uL Lymph # (Auto) (9654-4612) /uL Edmunds # (Auto) (0-900) /uL Eos # (Auto) (0-450) /uL Baso # (Auto) (0-100) /uL APTT 34 (26.4-36.2) SECONDS D-Dimer (<230) ng/mL Sodium (137-145) mmol/L Potassium (3.4-5.1) mmol/L Chloride (98-107) mmol/L Carbon Dioxide (22-32) mmol/L BUN (7-17) mg/dL Creatinine (0.52-1.04) mg/dL Estimated GFR (>60) mL/min BUN/Creatinine Ratio (6-22) Glucose (80-110) mg/dL Lactate (0.7-2.1) mmol/L Calcium (8.4-10.2) mg/dL Total Bilirubin (0.2-1.3) mg/dL AST (14-36) IU/L ALT (<35) IU/L Alkaline Phosphatase (38-126) U/L Total Creatine Kinase (30-135) U/L CK-MB (CK-2) CK-MB (CK-2) Rel Index Troponin I 0.423 H* (0.01-0.034) ng/mL NT-Pro-B Natriuret Pep (<125) pg/mL Total Protein (6.3-8.2) g/dL Albumin (3.5-5.0) g/dL Globulin (1.7-4.1) g/dL Albumin/Globulin Ratio (1.0-2.8) Procalcitonin 0.08 (<0.5) ng/mL SARS-CoV-2 (PCR) (Negative) 04/09/21 04/09/21 04/09/21 Range/Units 03:05 03:05 04:15 WBC (4.5-11.0) X10^3/uL RBC (4.0-5.2) X10^6/uL Hgb 13.5 (12.0-16.0) g/dL Hct 41.4 (36-46) % MCV (80-100) fL MCH (26-34) PG MCHC (30-36) % RDW (11.6-14.8) % Plt Count (150-400) X10^3/uL Neut % (Auto) (50-75) % Lymph % (Auto) (25-40) % Edmunds % (Auto) (3-14) % Eos % (Auto) (2-4) % Baso % (Auto) (0-2) % Neut # (Auto) (7253-3582) /uL Lymph # (Auto) (9348-6099) /uL Edmunds # (Auto) (0-900) /uL Eos # (Auto) (0-450) /uL Baso # (Auto) (0-100) /uL APTT 214 H* D (26.4-36.2) SECONDS D-Dimer (<230) ng/mL Sodium (137-145) mmol/L Potassium (3.4-5.1) mmol/L Chloride (98-107) mmol/L Carbon Dioxide (22-32) mmol/L BUN (7-17) mg/dL Creatinine (0.52-1.04) mg/dL Estimated GFR (>60) mL/min BUN/Creatinine Ratio (6-22) Glucose (80-110) mg/dL Lactate (0.7-2.1) mmol/L Calcium (8.4-10.2) mg/dL Total Bilirubin (0.2-1.3) mg/dL AST (14-36) IU/L ALT (<35) IU/L Alkaline Phosphatase (38-126) U/L Total Creatine Kinase (30-135) U/L CK-MB (CK-2) CK-MB (CK-2) Rel Index Troponin I 0.534 H* (0.01-0.034) ng/mL NT-Pro-B Natriuret Pep (<125) pg/mL Total Protein (6.3-8.2) g/dL Albumin (3.5-5.0) g/dL Globulin (1.7-4.1) g/dL Albumin/Globulin Ratio (1.0-2.8) Procalcitonin (<0.5) ng/mL SARS-CoV-2 (PCR) (Negative) Imaging Data CT scan - chest: Radiologist's Impression: [address] [id number] Scan ReportSigned Patient: Brayden Gale [facility]#: [id number]: 5Acct:[id number]/Sex: 65 / FDate of Service: 04/08/21Loc: EDAccession Number: [id number] Procedure: CT angio chest PE protocol Ordering Provider: Rita Lambert P.A-C PROCEDURE: CT ANGIO CHEST PE PROTOCOL INDICATIONS: pleural effusion, elevated d dimer TECHNIQUE: After the administration of intravenous contrast, 2 mm thick sections acquired from the pulmonary apices to the posterior costophrenic angles. 3-dimensional maximum intensity projection (MIP) coronal and sagittal reformats were then acquired through the thorax. For radiation dose reduction, the following was used: automated exposure control, adjustment of mA and/or kV according to patient size. COMPARISON: [facility], CT, CT ANGIO CHEST, 03/24/2021, 12:10. FINDINGS: Image quality: Excellent. Pulmonary arteries: Pulmonary arteries are normal in size, and demonstrate no intraluminal filling defects to suggest central pulmonary embolism. Lungs and pleura: Emphysematous changes with apical predominance noted. Poorly defined right infrahilar lung mass is noted which is narrowing the right middle and lower lobe bronchi. Numerous bilateral, diffuse lung nodules are noted ranging in size from 2 millimeters-13 millimeters which are highly suspicious for metastatic disease. There is right middle and lower lobe collapse which could be due to centrally obstructing mass and/or compressive atelectasis. Moderate right-sided pleural effusion. No pneumothorax. Central and peripheral airways are patent. Mediastinum: Heart is enlarged with moderate-sized pericardial effusion. Atherosclerotic calcifications are noted in the aorta, great vessels and the coronary vasculature. Bulky right hilar lymphadenopathy. Bulky subcarinal, precarinal, right paratracheal, aortopulmonary window and prevascular mediastinal lymphadenopathy the likely related to metastatic disease. Mildly enlarged left hilar lymph nodes are noted likely related to metastatic disease. Thoracic aorta is normal in caliber and enhancement. Esophagus is normal in caliber, without hiatal hernia. Bones and chest wall: No suspicious bony lesions. Ribs and thoracic spine appear intact throughout. Thyroid gland is within normal limits No axillary or supraclavicular adenopathy. Abdomen: Liver has slightly heterogeneous enhancement which could be due to contrast timing versus hepatic metastatic disease disease. IMPRESSION: 1. No pulmonary embolus. 2. Poorly defined right lung infrahilar mass highly suspicious for primary bronchogenic carcinoma. There is right middle and lower lobe collapse associated with the mass. 3. Numerous bilateral lung nodules highly suspicious for metastatic disease. Nodules have increased in number and size compared to March 24, 2021. 4. Bilateral hilar and mediastinal lymphadenopathy likely representing metastatic disease. 5. Slightly heterogeneous enhancement of the liver. Hepatic metastatic disease is not excluded. Recommend dedicated CT scan of the abdomen and pelvis when clinically feasible. 6. Cardiomegaly. 7. Moderate-sized pericardial effusion which is increased in size compared to March 24, 2021. . 8. Moderate right-sided pleural effusion which is stable in size compared to March 24, 2021. Dictated by: Chelle Harris MD, PhD on 04/08/2021 at 15:03 Approved by: Chelle Harris MD, PhD on 04/08/2021 at 15:21 Echocardiogram: Radiologist's Impression: [address] [id number] ReportSigned Patient: Brayden Gale [facility]#: [id number]: 5Acct:[id number]/Sex: 65 / FDate of Service: 04/08/21Loc: EDAccession Number: [id number] Procedure: EC echo limited Ordering Provider: Rita Lambert P.A-C +---------+ Hospital +---------+ : : [address] : : : : [id number] : : : : Phone: [phone]---------+ Echocardiogram Report + + :Name: BRAYDEN GALE Study Date: 04/08/2021 Height: 59 in : :[facility] ReadingLocation: Weight: 85 lb : : Gender: Female BSA: 1.3 m2 : :: 1955 Age: 65 yrs BP: 145/66 mmHg: :Reason For Study: PERICARDIAL EFFUSION : :Ordering Physician: FAUSTO, : :RITA Performed By: Ro Cee : :Referring: RITA LAMBERT : + + Interpretation Summary This is a limited echo to evaluate pericardial effusion. Normal sinus rhythm. Normal LV size, wall thickness, wall motion and left ventricular systolic function. Ejection fraction is 65-70%. No significant valvular abnormalities. There is a moderate pericardial effusion primarily localized near the right ventricle free wall. It measures about 1 cm in end diastole in its greatest dimension. There is no evidence of tamponade based on available images. Patient is not hypotensive. No prior study available for comparison. Procedure: A two-dimensional transthoracic echocardiogram with color flow and Doppler was performed in limited views only to assess pericardial effusion. The study quality was technically adequate. There is no prior echocardiogram noted for this patient. Left Ventricle: The left ventricular cavity is small. There is normal left ventricular wall thickness. The ejection fraction is estimated to be 65-70%. Right Ventricle: The right ventricle is normal size. Great Vessels: The IVC is of normal diameter and collapses greater than 50% with a sniff. This suggests a low right atrial pressure of 3 mm Hg. Pericardium/ Pleura There is a moderate pericardial effusion noted. MMode/2D Measurements & Calculations LVIDd: 3.4 cm LA A4 area: 7.7 cm2 LVIDs: 2.2 cm LA length (vol): 3.0 cm FS: 35.0 % IVSd: 0.61 cm LVPWd: 0.61 cm LV hutson. diameter/BSA (cm/m^2): 2.7 LV sys. diameter/BSA (cm/m^2): 1.7 RA long axis: 3.6 cm RVD1 (basal): 2.8 cm RA area: 8.6 cm2 RA vol: 17.5 ml RA : 13.6 ml/m2 Electronically signed by: Ele Chanel M.D. on Reading Physician:04/08/2021 05:03 PM ECG Data Attestation: I personally reviewed and interpreted this ECG as follows: Prior ECG tracings: available for review Interpretation: Atrial fibrillation Ventricular rate [address] T wave changes MDM Narrative Medical decision making narrative: DR greco: Received turned over from CARMEL Lambert. Patient was seen here in the emergency department a couple days ago for weakness and shortness of breath. A CT scan of the chest at that time was concerning for a right lung mass and also a pleural effusion. Since that ED visit she has followed up with the primary doctor. Had a thoracentesis performed which did show malignant cells. 650 cc was reported to have been removed. She is back on her Eliquis. During her last visit here in the emerge ncy department and look like that she was in rate controlled AFib. No prior history of atrial fibrillation. She is in atrial fibrillation here today. No chest pain. The reason that she came to the emergency department today was that she was becoming very weak and having shortness of breath on exertion over the past couple days. Workup prior to my interaction with the patient included a chest x-ray and an echocardiogram and a repeat CT scan which again showed a mass in the right lung. A collapse of the right middle and lower lung. What appears to be return of the effusion. Patient is not hypoxic. Initial troponin today was elevated. Repeat upon my acceptance of the patient shows that it was higher. Patient would not having chest pain. She was started on a heparin. Her last dose of Eliquis was greater than 12 hours ago. A repeat shows the troponin is continuing to rise. She has no signs of cardiac tamponade. No signs of an infection. Patient was kept in the emergency department secondary to a lack of ability to find placement. I did talk with Cardiology at [facility] who stated they would be happy to see the patient upon arrival. Then discussed the case with the hospitalist who agrees to accept the patient in transfer. Patient is stable for transfer. They were informed of the need for transport. They expressed understanding and agreement. <Koby Greco, DO - Last Filed: 04/09/21 06:50> Critical Care Time Critical Care Time: Yes Total Critical Care Time: 35 Attestation: The high probability of a clinically significant, sudden or life threatening deterioration of the cardiovascular/respiratory system(s) required my full and direct attention, intervention and personal management. The aggregate critical care time was 35 minutes. This time is in addition to time spent performing reported procedures but includes the following: [x] Data Review and interpretation [x] Patient assessment and monitoring of vital signs [x] Documentation [x] Medication orders and management Discharge Plan Departure Patient Disposition: [facility] Clinical Impression: Non-ST elevation [place] (NSTEMI), Weakness, Effusion, pericardium, Shortness of breath, Pleural effusion, Lung mass Prescriptions: No Action multivitamin [Multiple Vitamins] 1 EACH tablet 1 tab PO QDAY Qty: 0 RF: 0 Eliquis 5 MG tablet 5 mg BID Qty: 0 RF: 0 metoprolol succinate [Toprol XL] 25 MG tablet extended release 24 hr 25 mg PO QDAY Qty: 0 RF: 0 potassium chloride [Klor-Con 10] 10 MEQ tablet extended release 10 meq PO Q DAY Qty: 0 RF: 0 ACETAMINOPHEN 650 mg PO Q4HP MDD 3000 PRN (Reason: pain) Qty: 0 RF: 0 sennosides [senna] 8.6 MG tablet 8.6 mg PO BIDP PRN (Reason: Constipation) Qty: 0 RF: 0 amlodipine [Norvasc] 2.5 MG tablet 5 mg PO DAILY Qty: 0 RF: 0 losartan 100 mg tablet 100 mg PO DAILY RF: 0 Referrals: Bridget Clemons MD [Primary Care Provider] -
[2021-04-08 13:48] LABS: COVID19 -Nasal RAPID Negative (Negative)
[2021-04-08 14:12] LABS: Add Manual Diff / Slide Review NO; Basophils Absolute Auto 0 /uL (0-100); Basophils Percent Auto 0.4 % (0-2); Eosinophils Absolute Auto 0 /uL (0-450); Eosinophils Percent Auto 0.3 % (2-4); Hemoglobin 14.6 g/dL (12.0-16.0); Lymphocytes Absolute Auto 600 /uL (1100-4500); Lymphocytes Percent Auto 8.1 % (25-40); Mean Corpuscular HGB Conc 33.2 % (30-36); Mean Corpuscular Hemoglobin 29.4 PG (26-34); Mean Corpuscular Volume 88.7 fL (80-100); Monocytes Absolute Auto 700 /uL (0-900); Monocytes Percent Auto 9.8 % (3-14); Neutrophils Absolute Auto 5700 /uL (1500-7000); Neutrophils Percent Auto 81.4 % (50-75); Platelet Count 269 X10^3/uL (150-400); Red Blood Cell Count 4.96 X10^6/uL (4.0-5.2); Red Cell Distribution Width 14.6 % (11.6-14.8)
--- NOTE | 2021-04-08 14:14 | DI.ECHO.S_ITS ---
[facility] +---------+ [facility] +---------+ : : [address] : : : : [id number] : : : : Phone: [phone]---------+ Echocardiogram Report + + :Name: BRAYDEN JEFFERSON Study Date: 04/08/2021 Height: 59 in : [facility] ReadingLocation: Weight: 85 lb : : Gender: Female BSA: 1.3 m2 : :: 1955 Age: 65 yrs BP: 145/66 mmHg: :Reason For Study: PERICARDIAL EFFUSION : :Ordering Physician: FAUSTO, : :RITA Performed By: Ro Cee : :Referring: RITA LAMBERT : + + Interpretation Summary This is a limited echo to evaluate pericardial effusion. Normal sinus rhythm. Normal LV size, wall thickness, wall motion and left ventricular systolic function. Ejection fraction is 65-70%. No significant valvular abnormalities. There is a moderate pericardial effusion primarily localized near the right ventricle free wall. It measures about 1 cm in end diastole in its greatest dimension. There is no evidence of tamponade based on available images. Patient is not hypotensive. No prior study available for comparison. Procedure: A two-dimensional transthoracic echocardiogram with color flow and Doppler was performed in limited views only to assess pericardial effusion. The study quality was technically adequate. There is no prior echocardiogram noted for this patient. Left Ventricle: The left ventricular cavity is small. There is normal left ventricular wall thickness. The ejection fraction is estimated to be 65-70%. Right Ventricle: The right ventricle is normal size. Great Vessels: The IVC is of normal diameter and collapses greater than 50% with a sniff. This suggests a low right atrial pressure of 3 mm Hg. Pericardium/ Pleura There is a moderate pericardial effusion noted. MMode/2D Measurements & Calculations LVIDd: 3.4 cm LA A4 area: 7.7 cm2 LVIDs: 2.2 cm LA length (vol): 3.0 cm FS: 35.0 % IVSd: 0.61 cm LVPWd: 0.61 cm LV hutson. diameter/BSA (cm/m^2): 2.7 LV sys. diameter/BSA (cm/m^2): 1.7 RA long axis: 3.6 cm RVD1 (basal): 2.8 cm RA area: 8.6 cm2 RA vol: 17.5 ml RA : 13.6 ml/m2 Electronically signed by: Ele Chanel M.D. on Reading Physician:04/08/2021 05:03 PM
[2021-04-08 14:20] LABS: D Dimer 717 ng/mL (<230)
[2021-04-08 14:21] LABS: Lactate (Lactic Acid) 1.5 mmol/L (0.7-2.1)
[2021-04-08 14:27] LABS: Alanine Aminotransferase 28 IU/L (<35); Albumin Globulin Ratio 1.5 (1.0-2.8); Alkaline Phosphatase 115 U/L (38-126); Aspartate Aminotransferase 50 IU/L (14-36); BUN Creatinine Ratio 20.3 (6-22); Bilirubin Total 0.6 mg/dL (0.2-1.3); Blood Urea Nitrogen 14 mg/dL (7-17); Calcium 10.2 mg/dL (8.4-10.2); Carbon Dioxide 27 mmol/L (22-32); Chloride 105 mmol/L (98-107); Creatine Kinase 36 U/L (30-135); Estimated Glomerular Filt Rate > 60.0 mL/min (>60); Globulin 2.6 g/dL (1.7-4.1); Glucose 117 mg/dL (80-110); HEMOLYSIS < 15 (0-50); Potassium 3.6 mmol/L (3.4-5.1); Sodium 140 mmol/L (137-145); Total Protein 6.6 g/dL (6.3-8.2)
[2021-04-08 14:31] LABS: NT-proBNP (BNP-Adult 18+) 609 pg/mL (<125)
[2021-04-08 14:39] LABS: Procalcitonin 0.08 ng/mL (<0.5)
--- NOTE | 2021-04-08 14:45 | DI.CT.S_ITS ---
PROCEDURE: CT ANGIO CHEST PE PROTOCOL INDICATIONS: pleural effusion, elevated d dimer TECHNIQUE: After the administration of intravenous contrast, 2 mm thick sections acquired from the pulmonary apices to the posterior costophrenic angles. 3-dimensional maximum intensity projection (MIP) coronal and sagittal reformats were then acquired through the thorax. For radiation dose reduction, the following was used: automated exposure control, adjustment of mA and/or kV according to patient size. COMPARISON: [facility], CT, CT ANGIO CHEST, 03/24/2021, 12:10. FINDINGS: Image quality: Excellent. Pulmonary arteries: Pulmonary arteries are normal in size, and demonstrate no intraluminal filling defects to suggest central pulmonary embolism. Lungs and pleura: Emphysematous changes with apical predominance noted. Poorly defined right infrahilar lung mass is noted which is narrowing the right middle and lower lobe bronchi. Numerous bilateral, diffuse lung nodules are noted ranging in size from 2 millimeters-13 millimeters which are highly suspicious for metastatic disease. There is right middle and lower lobe collapse which could be due to centrally obstructing mass and/or compressive atelectasis. Moderate right-sided pleural effusion. No pneumothorax. Central and peripheral airways are patent. Mediastinum: Heart is enlarged with moderate-sized pericardial effusion. Atherosclerotic calcifications are noted in the aorta, great vessels and the coronary vasculature. Bulky right hilar lymphadenopathy. Bulky subcarinal, precarinal, right paratracheal, aortopulmonary window and prevascular mediastinal lymphadenopathy the likely related to metastatic disease. Mildly enlarged left hilar lymph nodes are noted likely related to metastatic disease. Thoracic aorta is normal in caliber and enhancement. Esophagus is normal in caliber, without hiatal hernia. Bones and chest wall: No suspicious bony lesions. Ribs and thoracic spine appear intact throughout. Thyroid gland is within normal limits No axillary or supraclavicular adenopathy. Abdomen: Liver has slightly heterogeneous enhancement which could be due to contrast timing versus hepatic metastatic disease disease. IMPRESSION: 1. No pulmonary embolus. 2. Poorly defined right lung infrahilar mass highly suspicious for primary bronchogenic carcinoma. There is right middle and lower lobe collapse associated with the mass. 3. Numerous bilateral lung nodules highly suspicious for metastatic disease. Nodules have increased in number and size compared to March 24, 2021. 4. Bilateral hilar and mediastinal lymphadenopathy likely representing metastatic disease. 5. Slightly heterogeneous enhancement of the liver. Hepatic metastatic disease is not excluded. Recommend dedicated CT scan of the abdomen and pelvis when clinically feasible. 6. Cardiomegaly. 7. Moderate-sized pericardial effusion which is increased in size compared to March 24, 2021. . 8. Moderate right-sided pleural effusion which is stable in size compared to March 24, 2021. Dictated by: Chelle Harris MD, PhD on 04/08/2021 at 15:03 Approved by: Chelle Harris MD, PhD on 04/08/2021 at 15:21
[2021-04-08] MEDS: SODIUM CHLORIDE 0.9% 1,000 ML 150 ML IV (18:53)
[2021-04-08 22:00] LABS: Troponin I 0.423 ng/mL (0.01-0.034)
[2021-04-08] MEDS: ASPIRIN 81 MG CHEW TAB 324 MG PO (22:17)
[2021-04-08] MEDS: HEPARIN 5,000 UNIT/ML VIAL 4000 UNIT IV (22:18)
[2021-04-08 22:20] LABS: PTT Partial Thromboplastin Tim 34 SECONDS (26.4-36.2)
[2021-04-08] MEDS: HEPARIN DRIP 25,000 UNIT/500 ML IV.SOLN 9.253 UNIT IV (22:31)
[2021-04-09] VITALS (21 sets, daily range): BP systolic 104–139; BP diastolic 56–79; PULSE 80–160; RESP 11–48; O2SAT 95–99
[2021-04-09 03:21] LABS: Hematocrit 41.4 % (36-46); Hemoglobin 13.5 g/dL (12.0-16.0)
[2021-04-09 03:41] LABS: Troponin I 0.534 ng/mL (0.01-0.034)
[2021-04-09 04:48] LABS: PTT Partial Thromboplastin Tim 214 SECONDS (26.4-36.2)
== END 2021-04-09 09:06 | disposition short-term general hospital (02) ==
PROVIDERS: Physician Assistant; Emergency Provider Emergency Medicine; PCP Internal Medicine
DX: I21.4 Non-ST elevation (NSTEMI) myocardial infarction (principal); J90 Pleural effusion, not elsewhere classified; R06.02 Shortness of breath; R91.8 Other nonspecific abnormal finding of lung field; I31.3 Pericardial effusion (noninflammatory); Z20.822 Contact with and (suspected) exposure to COVID-19
CPT/HCPCS: 36415; 71045; 71275; 80053; 82550; 83605; 83880; 84145; 84484; 85014; 85018; 85025; 85379; 85730; 87040; 87635; 93005; 93307; 93971; 96361; 96365; 96366; 96375; 99285; 99291; C9803; J1644; Q9967

== ENCOUNTER 2021-04-16 09:56 | Emergency (ER) | payer MEDICARE, OTHER, SELFPAY ==
[2021-04-16] VITALS (19 sets, daily range): BP systolic 95–163; BP diastolic 52–99; PULSE 76–163; RESP 30–49; TEMP 36.1; O2SAT 94–98; BMI 17.2
--- NOTE | 2021-04-16 09:56 | DI.RAD.S_ITS ---
PROCEDURE: XR CHEST 1V INDICATIONS: dyspnea TECHNIQUE: One view of the chest was acquired. COMPARISON: [facility], CT, CT ANGIO CHEST PE PROTOCOL, 04/08/2021, 14:57. [facility], CR, XR CHEST 1V, 04/08/2021, 13:55. FINDINGS: Surgical changes and devices: None. Lungs and pleura: Small to moderate sized right-sided pleural fluid collection which is decreased in size compared to prior exam. Masslike opacification in the right perihilar lung.. Right perihilar lung consolidation suspicious for pneumonia. Patchy opacities noted in the left lung which are stable compared to the prior exam. Mediastinum: Mediastinal contours appear normal. Heart size is normal. Bones and chest wall: No suspicious bony lesions. Overlying soft tissues appear unremarkable. IMPRESSION: 1. Masslike opacification in the right perihilar lung suspicious for neoplastic process. 2. Right perihilar lung opacity concerning for pneumonia possibly postobstructive. 3. Small to moderate-sized right-sided pleural fluid collection slightly decreased in size compared to April 08, 2021. Dictated by: Chelle Harris MD, PhD on 04/16/2021 at 10:09 Approved by: Chelle Harris MD, PhD on 04/16/2021 at 10:12
--- NOTE | 2021-04-16 10:15 | PC.NURSE ---
Patient discharged within last 36 hrs from [facility], had right lung tapped. Increase SOB starting this morning.
[2021-04-16] MEDS: AMLODIPINE 5 MG TABLET PO (10:22)
[2021-04-16 10:24] LABS: Add Manual Diff / Slide Review NO; Basophils Absolute Auto 0 /uL (0-100); Basophils Percent Auto 0.4 % (0-2); Eosinophils Absolute Auto 0 /uL (0-450); Hematocrit 44.4 % (36-46); Hemoglobin 14.4 g/dL (12.0-16.0); Lymphocytes Absolute Auto 600 /uL (1100-4500); Lymphocytes Percent Auto 5.4 % (25-40); Mean Corpuscular HGB Conc 32.5 % (30-36); Mean Corpuscular Hemoglobin 29.1 PG (26-34); Mean Corpuscular Volume 89.7 fL (80-100); Monocytes Absolute Auto 800 /uL (0-900); Neutrophils Absolute Auto 9000 /uL (1500-7000); Neutrophils Percent Auto 86.2 % (50-75); Platelet Count 326 X10^3/uL (150-400); Red Blood Cell Count 4.95 X10^6/uL (4.0-5.2); Red Cell Distribution Width 15.3 % (11.6-14.8); White Blood Cell Count 10.5 X10^3/uL (4.5-11.0)
[2021-04-16] MEDS: METOPROLOL TARTRATE 5 MG/5 ML INJ IV (10:24)
[2021-04-16 10:29] LABS: Alanine Aminotransferase 46 IU/L (<35); Albumin 3.8 g/dL (3.5-5.0); Albumin Globulin Ratio 1.5 (1.0-2.8); Alkaline Phosphatase 147 U/L (38-126); Aspartate Aminotransferase 80 IU/L (14-36); BUN Creatinine Ratio 37.1 (6-22); Bilirubin Total 0.5 mg/dL (0.2-1.3); Blood Urea Nitrogen 23 mg/dL (7-17); Calcium 9.7 mg/dL (8.4-10.2); Carbon Dioxide 28 mmol/L (22-32); Chloride 105 mmol/L (98-107); Estimated Glomerular Filt Rate > 60.0 mL/min (>60); Globulin 2.6 g/dL (1.7-4.1); Glucose 151 mg/dL (80-110); HEMOLYSIS < 15 (0-50); Potassium 3.5 mmol/L (3.4-5.1); Sodium 140 mmol/L (137-145); Total Protein 6.4 g/dL (6.3-8.2)
--- NOTE | 2021-04-16 10:33 | ED_ITS ---
HPI - General Adult General Chief complaint: Shortness of Breath/Dyspnea Stated complaint: SOB Time Seen by Provider: 04/16/21 10:00 Source: patient and EMS Mode of arrival: EMS Limitations: no limitations History of Present Illness HPI narrative: 65-year-old woman with recent diagnosis of metastatic lung cancer, metastatic pleural effusion, small known pericardial effusion without tamponade physiology and paroxysmal atrial fibrillation presents with acute dyspnea. She was seen a week ago and transferred to [facility] where her pleural effusion was tapped with the definitive diagnosis of cancer made. Awaiting records to see what additional diagnostic recommendations or treatments are pending. With that visit her Eliquis was discontinued and she was started on Lovenox. Amlodipine and losartan were discontinued and metoprolol was started. Records from [facility] are available: Malignant right pleural effusion consistent with metastatic lung adenocarcinoma air hunger resolved with oxygen Pleuritic chest pain resolved with Roxanol Significant functional mobility from prior stroke with left-sided weakness, wheelchair-bound and progressive weakness secondary to new cancer diagnoses Right lung infrahilar mass suspicious for primary bronchogenic carcinoma with right middle and lower lobe collapse, multiple bilateral lung nodules suspicious for metastatic disease as well as liver abnormalities suspicious for metastatic disease Goals of care conversation was had at [facility] which indicated that comfort was likely going to be the final decision. Primary care appointment was scheduled for later this afternoon with consideration of hospice consult verses oncology consult. In discussing all of her findings in her understanding of her diagnosis today she and her are both very clear that there goal is comfort. They recognize that she is dying and she absolutely wants to at home with family and friends at the bedside. Her biggest impairment to that at this point is air hunger causing anxiety with paroxysmal atrial fibrillation which is making the air hunger worse. Related Data Home Medications Medication Instructions Recorded Confirmed ACETAMINOPHEN 650 mg PO Q4HP PRN #0 MDD 3000 01/24/17 04/09/21 apixaban 5 mg tablet (Eliquis) 5 mg BID #0 01/24/17 04/09/21 metoprolol succinate 25 mg 25 mg PO QDAY #0 01/24/17 04/09/21 tablet,extended release 24 hr (Toprol XL) multivitamin (Multiple Vitamins) 1 tab PO QDAY #0 01/24/17 04/09/21 potassium chloride 10 mEq 10 meq PO Q DAY #0 01/24/17 04/09/21 tablet,extended release (Klor-Con) sennosides 8.6 mg tablet (senna) 8.6 mg PO BIDP PRN #0 01/24/17 04/09/21 amlodipine 2.5 mg tablet (Norvasc) 5 mg PO DAILY #0 04/22/17 04/09/21 losartan 100 mg tablet 100 mg PO DAILY 04/09/21 04/09/21 Allergies Allergy/AdvReac Type Severity Reaction Status Date / Time cefazolin [CEFAZOLIN] Allergy Unknown Verified 04/16/21 10:06 questionable Allergy Unknown unable to Uncoded 12/27/18 14:38 enter using this tool - SEE PMHx Review of Systems Review of Systems Narrative: Markedly positive with increasing weakness, increasing fatigue, worsening left-sided weakness symptoms after stroke 4 years ago, decreased appetite, pleuritic chest pain, palpitations, lower extremity edema increasing, Denies abdominal pain, has had minimal urine or stool output Cough is unchanged, it is not productive. She has not had any fevers or chills Patient History Medical History (Updated 04/16/21 @ 13:07 by Brandie Flores MD) Metastatic primary lung cancer Surgical History Status post laparoscopy Family History Father Hypertension Social History Smoking Status: Former smoker Smoking Status: Former smoker alcohol intake frequency: other Substance Use Type: does not use Exam Narrative Exam Narrative: General: Frail, cachectic, weak HEENT: Moist mucous membranes, normal sclera with reactive pupils, Neck: No JVD, supple Respiratory: Lungs with diminished breath sounds right middle lobe down, scattered wheeze and mild crackles upper lung sounds right and left lobes Cardiac: Tachycardic and irregular, no murmurs no bruits Abdomen: Scaphoid, nontender, good bowel tones, no flank pain Skin: Frail, thin, multiple bruises Neurologic: Left-sided hemiparesis globally weak Extremities: No trauma, Psych: Cooperative, appropriate insight and affect Initial Vital Signs Initial Vital Signs: Vital Signs Temperature 96.9 F L 04/16/21 10:00 Pulse Rate 163 H 04/16/21 10:00 Respiratory Rate 30 H 04/16/21 10:00 Blood Pressure 163/99 H 04/16/21 10:00 Pulse Oximetry 94 04/16/21 10:00 Course Orders Ordered: ED Orders 04/16/21 09:56 XR chest 1V Stat 04/16/21 10:10 Complete Blood Count AUTO DIFF Stat Comprehensive Metabolic Panel Stat Troponin I Stat 04/16/21 10:14 EKG-12 Lead Stat Discontinued Medications Amlodipine Besylate (Amlodipine 5 Mg Tablet) 5 mg PO NOW ONE Stop: 04/16/21 10:14 Last Admin: 04/16/21 10:22 Dose: 5 mg Documented by: DANIA Metoprolol Tartrate (Metoprolol Tartrate 5 Mg/5 Ml Inj) 5 mg IV Q5M DELMA Stop: 04/16/21 10:26 Last Admin: 04/16/21 13:00 Dose: Not Given Documented by: Admin: 04/16/21 12:18 Dose: Not Given Documented by: Admin: 04/16/21 10:24 Dose: 5 mg Documented by: DANIA Vital Signs Vital signs: Vital Signs - 8 hr 04/16/21 10:00 04/16/21 10:27 04/16/21 10:30 Temperature 96.9 F L Pulse Rate 76 149 H 162 H Respiratory Rate 30 H 47 H 42 H Blood Pressure 163/99 H 129/70 119/59 L Pulse Oximetry 94 96 95 04/16/21 10:33 04/16/21 11:00 04/16/21 11:30 Temperature Pulse Rate 76 77 78 Respiratory Rate 49 H 39 H 43 H Blood Pressure 128/58 L 99/60 105/59 L Pulse Oximetry 95 95 96 04/16/21 12:00 04/16/21 12:30 04/16/21 12:31 Temperature Pulse Rate 155 H 151 H 144 H Respiratory Rate 43 H 40 H 47 H Blood Pressure 106/53 L 114/65 Pulse Oximetry 95 95 95 04/16/21 13:00 04/16/21 13:30 04/16/21 13:31 Temperature Pulse Rate 99 H 83 129 H Respiratory Rate 41 H 45 H 46 H Blood Pressure 95/67 124/58 L Pulse Oximetry 96 97 98 04/16/21 14:00 04/16/21 14:01 04/16/21 14:30 Temperature Pulse Rate 136 H 114 H 152 H Respiratory Rate 40 H 41 H 39 H Blood Pressure 126/56 L 97/55 L Pulse Oximetry 98 04/16/21 15:00 04/16/21 15:30 04/16/21 16:00 Temperature Pulse Rate 102 H 146 H Respiratory Rate 40 H 42 H 37 H Blood Pressure 109/54 L 105/59 L 107/53 L Pulse Oximetry 97 97 97 Medical Decision Making Lab Data Result diagrams: 04/16/21 10:10 04/16/21 10:10 Labs: Lab Results 04/16/21 04/16/21 Range/Units 10:10 10:10 WBC 10.5 (4.5-11.0) X10^3/uL RBC 4.95 (4.0-5.2) X10^6/uL Hgb 14.4 (12.0-16.0) g/dL Hct 44.4 (36-46) % MCV 89.7 (80-100) fL MCH 29.1 (26-34) PG MCHC 32.5 (30-36) % RDW 15.3 H (11.6-14.8) % Plt Count 326 (150-400) X10^3/uL Neut % (Auto) 86.2 H (50-75) % Lymph % (Auto) 5.4 L (25-40) % [place] % (Auto) 8.0 (3-14) % Eos % (Auto) 0.0 L (2-4) % Baso % (Auto) 0.4 (0-2) % Neut # (Auto) 9000 H (2323-7836) /uL Lymph # (Auto) 600 L (3216-0807) /uL [place] # (Auto) 800 (0-900) /uL Eos # (Auto) 0 (0-450) /uL Baso # (Auto) 0 (0-100) /uL Sodium 140 (137-145) mmol/L Potassium 3.5 (3.4-5.1) mmol/L Chloride 105 (98-107) mmol/L Carbon Dioxide 28 (22-32) mmol/L BUN 23 H (7-17) mg/dL Creatinine 0.62 (0.52-1.04) mg/dL Estimated GFR > 60.0 (>60) mL/min BUN/Creatinine Ratio 37.1 H (6-22) Glucose 151 H (80-110) mg/dL Calcium 9.7 (8.4-10.2) mg/dL Total Bilirubin 0.5 (0.2-1.3) mg/dL AST 80 H (14-36) IU/L ALT 46 H (<35) IU/L Alkaline Phosphatase 147 H (38-126) U/L Troponin I 0.120 H (0.01-0.034) ng/mL Total Protein 6.4 (6.3-8.2) g/dL Albumin 3.8 (3.5-5.0) g/dL Globulin 2.6 (1.7-4.1) g/dL Albumin/Globulin Ratio 1.5 (1.0-2.8) Imaging Data Chest x-ray: Radiologist's Impression: FINDINGS: Surgical changes and devices: None. Lungs and pleura: Small to moderate sized right-sided pleural fluid collection which is decreased in size compared to prior exam. Masslike opacification in the right perihilar lung.. Right perihilar lung consolidation suspicious for pneumonia. Patchy o pacities noted in the left lung which are stable compared to the prior exam. Mediastinum: Mediastinal contours appear normal. Heart size is normal. Bones and chest wall: No suspicious bony lesions. Overlying soft tissues appear unremarkable. IMPRESSION: 1. Masslike opacification in the right perihilar lung suspicious for neoplastic process. 2. Right perihilar lung opacity concerning for pneumonia possibly postobstructive. 3. Small to moderate-sized right-sided pleural fluid collection slightly decreased in size compared to April 08, 2021. 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 Metastatic lung cancer diagnosed last week with reaccumulating metastatic pleural effusion She and her are very clear on goals of care being comfort and being home. Hospice consult is initiated. Likely initial evaluation in 5 days on April 20. Will arrange for home oxygen for comfort in the meantime. She does have Roxanol available to her and reviewed it appropriate use in the setting with her . Discharge Plan Departure Patient Disposition: Home Clinical Impression: Primary cancer of right lung, Malignant pleural effusion Metastatic lung cancer (metastasis from lung to other site) Qualifiers: Laterality: left Qualified Code(s): C34.92 - Malignant neoplasm of unspecified part of left bronchus or lung Instructions: DI for Lung Cancer Activity Restrictions/Additional Instructions: Thank you for coming in today Your pleural effusion is returning, but I think that it is your rapid heart rate from her atrial fibrillation that is causing your symptomatic shortness of breath. I have initiated a hospice consult and they will be contacting you with anticipated initial visit on TuesdayApril 20 I have arranged for home oxygen to continue for comfort. Make sure you call the complany (number on the tank) once you are home to arrange for more to be delivered. It is okay to continue to use the Roxanol, concentrated oral morphine, to help w ith the sensation of being short of breath as well as pain Please continue the metoprolol as this helps keep her atrial fibrillation less symptomatic If symptoms are worsening, please feel free to return to the ER Prescriptions: No Action multivitamin [Multiple Vitamins] 1 EACH tablet 1 tab PO QDAY Qty: 0 RF: 0 Eliquis 5 MG tablet 5 mg BID Qty: 0 RF: 0 metoprolol succinate [Toprol XL] 25 MG tablet extended release 24 hr 25 mg PO QDAY Qty: 0 RF: 0 potassium chloride [Klor-Con 10] 10 MEQ tablet extended release 10 meq PO Q DAY Qty: 0 RF: 0 ACETAMINOPHEN 650 mg PO Q4HP MDD 3000 PRN (Reason: pain) Qty: 0 RF: 0 sennosides [senna] 8.6 MG tablet 8.6 mg PO BIDP PRN (Reason: Constipation) Qty: 0 RF: 0 amlodipine [Norvasc] 2.5 MG tablet 5 mg PO DAILY Qty: 0 RF: 0 losartan 100 mg tablet 100 mg PO DAILY RF: 0 Referrals: Bridget Clemons MD [Primary Care Provider] -
--- NOTE | 2021-04-16 10:35 | PC.NURSE ---
After one dose of IV metoprolol patient rhythm into 70's NSR. Called for EKG
== END 2021-04-16 17:03 | disposition home or self-care (01) ==
PROVIDERS: Emergency Provider Emergency Medicine; PCP Internal Medicine
DX: C34.92 Malignant neoplasm of unspecified part of left bronchus or lung (principal); C34.91 Malignant neoplasm of unspecified part of right bronchus or lung; J91.0 Malignant pleural effusion; R06.00 Dyspnea, unspecified
CPT/HCPCS: 36415; 71045; 80053; 84484; 85025; 93005; 99284

== ENCOUNTER 2021-04-18 16:49 | Observation (INO) | payer MEDICARE, OTHER, SELFPAY ==
[2021-04-18] VITALS (8 sets, daily range): BP systolic 93–126; BP diastolic 58–67; PULSE 59–119; RESP 19–30; TEMP 36.1; O2SAT 92–99; BMI 16.9
[2021-04-18 17:22] LABS: COVID19 -Nasal RAPID Negative (Negative)
--- NOTE | 2021-04-18 17:25 | ED_ITS ---
HPI - SOB/Dyspnea General Chief Complaint: Shortness of Breath/Dyspnea Stated Complaint: stage IV lung CA, c/o SOB Time Seen by Provider: 04/18/21 16:50 Source: patient, family and EMS Mode of arrival: EMS Limitations: no limitations History of Present Illness HPI Narrative: This is a 65-year-old female with stage IV lung cancer with complaint of shortness of breath, chronic hemiparesis from prior stroke. Patient was seen recently. She was ultimately transferred to [place]. Patient at this time is comfort measures and does not want other additional treatments. She arrives with her because they have been unable to manage her dyspnea at home. She has a known pleural effusion as well as pericardial effusion. She has had prior thoracentesis but is unsure if she would like another 1 therapeutically today. She is not currently anticoagulated. She was taking oral liquid morphine. Her last dose was 0.25 mL approximately 2 hours prior to arrival with minimal improvement. She is not on any other daily medications for anxiety. Hospice is scheduled to see them for the 1st time on this Tuesday morning, it is Tuesday today. She is accompanied by her and later by her son. Related Data Previous Rx's Medication Instructions Recorded fentanyl 25 mcg/hr transdermal 1 patch TRANSDERMAL Q72H #5 ea 04/20/21 patch lorazepam 1 mg tablet (Ativan) 1 mg PO TID PRN #20 tab 04/20/21 Allergies Allergy/AdvReac Type Severity Reaction Status Date / Time cefazolin [CEFAZOLIN] Allergy Unknown Verified 04/16/21 10:06 questionable Allergy Unknown unable to Uncoded 12/27/18 14:38 enter using this tool - SEE PMHx Review of Systems Review of Systems ROS Unobtainable: All systems reviewed & are unremarkable except as noted in HPI and below Patient History Medical History (Updated 04/18/21 @ 21:43 by WILL Young) Anterior cerebral artery aneurysm Metastatic primary lung cancer STEMI (ST elevation myocardial infarction) Surgical History Status post laparoscopy Family History Father Hypertension Social History household members: spouse Smoking Status: Former smoker alcohol intake: never Smoking Status: Former smoker alcohol intake frequency: other Substance Use Type: does not use Exam Narrative Exam Narrative: GEN: Thin elderly female, alert and oriented x 3, patient appears to be in moderate distress. HEENT: Atraumatic, pupils are equal round reactive to light, extraocular movements are intact, nares are clear. HEART: Bradycardia but Regular rate and rhythm without murmur, clicks, rubs. LUNGS:Lungs decreased on the right patient has some movement on the left. No wheezes. Positive for rales. Positive for tachypnea. Patient speaks in 3-4 words. ABD:bowel sounds normal, soft, non-tender, no guarding, rebound, rigidity, no masses noted, no hepatosplenomegaly :No CVA tenderness MSCL: Non-tender NEURO:CN 2-12 intact, patient has left sided hemiparesis. SKIN: No rash, erythema or skin changes. Initial Vital Signs Initial Vital Signs: Vital Signs Temperature 97 F L 04/18/21 16:50 Pulse Rate 59 L 04/18/21 16:50 Respiratory Rate 30 H 04/18/21 16:50 Blood Pressure 126/67 04/18/21 16:50 Pulse Oximetry 92 04/18/21 16:50 Scores GCS Yehuda coma scale eye opening: Spontaneous Yehuda coma scale verbal response: Orientated [place] coma scale motor response: Obey commands Yehuda coma scale total score: 15 Course Orders Ordered: Discontinued Medications Acetaminophen (Acetaminophen 325 Mg Tablet) 650 mg PO Q6HR PRN PRN Reason: Fever/Mild Pain (1-3) Albuterol (Albuterol 2.5 Mg/3 Ml Neb (Adult)) 2.5 mg INH NOW ONE Stop: 04/18/21 17:27 Last Admin: 04/18/21 17:36 Dose: Not Given Documented by: ALTON Albuterol (Albuterol 2.5 Mg/3 Ml Neb (Adult)) 2.5 mg INH [id number] PRN PRN Reason: Shortness Of Breath Last Admin: 04/20/21 09:09 Dose: 2.5 mg Documented by: Admin: 04/20/21 00:37 Dose: 2.5 mg Documented by: Admin: 04/19/21 18:47 Dose: 2.5 mg Documented by: Admin: 04/19/21 00:24 Dose: 2.5 mg Documented by: RAMYA Fentanyl (Fentanyl 25 Mcg/Patch) 25 mcg TOP NOW ONE Stop: 04/18/21 18:07 Last Admin: 04/18/21 18:20 Dose: 25 mcg Documented by: TANNA Hydromorphone HCl (Hydromorphone 0.5 Mg Inj) 0.5 mg IV Q6H PRN PRN Reason: Pain, Moderate (4-6) Lactated Ringer's (Lactated Ringers) 500 mls @ 21 mls/hr IV CONT DELMA Last Admin: 04/18/21 21:57 Dose: 21 mls/hr Documented by: SMITH Lorazepam (Lorazepam 2 Mg/Ml Inj) 1 mg IV Q1HR PRN PRN Reason: Agitation/Anxiety Last Admin: 04/20/21 01:10 Dose: 1 mg Documented by: TILA Morphine Sulfate (Morphine 10 Mg/Ml Inj) 10 mg INH NOW ONE Stop: 04/18/21 17:31 Last Admin: 04/18/21 17:27 Dose: 10 mg Documented by: ALTON Morphine Sulfate (Morphine 2 Mg/Ml Inj) 2 mg IV Q4HR PRN PRN Reason: Pain, Moderate (4-6) Last Admin: 04/20/21 12:25 Dose: 2 mg Documented by: Admin: 04/20/21 09:05 Dose: 2 mg Documented by: Admin: 04/20/21 00:36 Dose: 2 mg Documented by: Admin: 04/19/21 18:46 Dose: 2 mg Documented by: Admin: 04/19/21 12:50 Dose: 2 mg Documented by: Admin: 04/19/21 07:17 Dose: 2 mg Documented by: Admin: 04/19/21 00:28 Dose: 2 mg Documented by: TILA Morphine Sulfate (Morphine 10 Mg/Ml Inj) 10 mg INH NOW ONE Stop: 04/19/21 00:08 Last Admin: 04/19/21 00:53 Dose: 10 mg Documented by: TILA Ondansetron HCl (Ondansetron 4 Mg/2 Ml Inj) 4 mg IV Q8HR PRN PRN Reason: Nausea And Vomiting Reevaluation(s) Reevaluation #1: Patient feels much better after nebulized morphine. She had family or feeling a bit overwhelmed about trying to keep her comfortable. They are still open hospice but are interested in possibly coming in at this time for comfort measures until they can be more properly supported. Time: 17:58 Reevaluation #2: Patient and family are comfortable with chest x-ray there potentially interested and therapeutic thoracentesis. We did discuss that patient could before the weekend or Tuesday when hospice was supposed to show up the patient's house. They are aware of this as well as the current visitor policy. Patient and family are comfortable with current plan. Time: 18:21 Consultations Consultation #1: Dr. Mora, hospitalist kindly accepts for observation. He suggests we try fentanyl patch for more continuous medication. Chest x-ray to evaluate pleural effusion is see if patient would be interested in a therapeutic thoracentesis. Potentially can arrange in the morning. Vital Signs Vital signs: Vital Signs - 8 hr 04/18/21 16:50 04/18/21 17:05 04/18/21 17:31 Temperature 97 F L Pulse Rate 59 L 63 119 H Respiratory Rate 30 H Blood Pressure 126/67 93/63 Pulse Oximetry 92 98 98 04/18/21 17:50 04/18/21 18:00 Temperature Pulse Rate 114 H 59 L Respiratory Rate 24 Blood Pressure 96/58 L Pulse Oximetry 97 99 MDM - SOB/Dyspnea Lab Data Labs: Lab Results 04/18/21 Range/Units 17:03 SARS-CoV-2 (PCR) Negative (Negative) Imaging Data Chest x-ray: Radiologist's Impression: [address] [address] XRay Report Signed Patient: Louise Gale MR#: [id number] : 1955 Acct:[id number] Age/Sex: 65 / F Date of Service: 04/18/21 Loc: ED Accession Number: [id number] ?? Procedure: XR chest 1V Ordering Provider: Yasmin Castro D.O. PROCEDURE:? XR CHEST 1V ? INDICATIONS:? pleural effusion ? TECHNIQUE:? One view of the chest was acquired.? ? COMPARISON:? [facility], CR, XR CHEST 1V, 04/16/2021, 9:58. ? FINDINGS:? ? Surgical changes and devices:? None.? ? Lungs and pleura:? Moderate-sized right-sided pleural fluid collection is increased in size compared to April 16, 2021. Pulmonary edema noted.? Partially visualized masslike opacity in the right perihilar region. ? Mediastinum:? Mediastinal contours appear normal.? Heart heart is enlarged. ? Bones and chest wall:? No suspicious bony lesions.? Overlying soft tissues appear unremarkable.? ? IMPRESSION:? ? 1. Moderate-sized right-sided pleural effusion increased in size.? ? 2. Pulmonary edema suspicious for CHF/fluid overload. ? 3. Masslike opacity in the right perihilar lung suspicious for neoplastic process not significantly changed where visualized.? ? ? Dictated by: Chelle Harris MD, PhD on 04/18/2021 at 18:33 ? ? Approved by: Chelle Harris MD, PhD on 04/18/2021 at 18:35?? MDM Narrative Medical decision making narrative: This is a 65-year-old female with known metastatic cancer who arrives with complaint of dyspnea and air hunger. They have been using oral liquid narcotics with incomplete treatment of her symptoms. They expected to see hospice on Tuesday further intake interview but it is Tuesday at this time. Patient received nebulized morphine here with significant improvement in her symptoms. She had I and her family discussed potential options regarding medications to return home verses admission here for comfort measures. Patient is clear that she does not wish to be resuscitated. At this time they feel would be appropriate to keep her here until they can arrange better options for her symptom control. , and son oral at bedside we did discuss her goals of care and that she is DNR/DNI and comfort measures only. Patient is also abdomen and clearly expresses this herself for me. I spoke with Dr. Mora who accepts for observation. He does ask for a chest x-ray to see if there would be appropriate pleural effusion to drain for therapeutic thoracentesis if patient is willing. Also recommends fentanyl patch for better symptom control as well. Discharge Plan Departure Patient Disposition: Admitted as Observation Clinical Impression: Lung cancer, Effusion, pericardium, Pleural effusion Admit Date/Time: 04/18/21 18:54 Admit Provider: Magdiel Mora
[2021-04-18] MEDS: MORPHINE 10 MG/ML INJ INH (17:27)
--- NOTE | 2021-04-18 18:06 | DI.RAD.S_ITS ---
PROCEDURE: XR CHEST 1V INDICATIONS: pleural effusion TECHNIQUE: One view of the chest was acquired. COMPARISON: [facility], CR, XR CHEST 1V, 04/16/2021, 9:58. FINDINGS: Surgical changes and devices: None. Lungs and pleura: Moderate-sized right-sided pleural fluid collection is increased in size compared to April 16, 2021. Pulmonary edema noted. Partially visualized masslike opacity in the right perihilar region. Mediastinum: Mediastinal contours appear normal. Heart heart is enlarged. Bones and chest wall: No suspicious bony lesions. Overlying soft tissues appear unremarkable. IMPRESSION: 1. Moderate-sized right-sided pleural effusion increased in size. 2. Pulmonary edema suspicious for CHF/fluid overload. 3. Masslike opacity in the right perihilar lung suspicious for neoplastic process not significantly changed where visualized. Dictated by: Chelle Harris MD, PhD on 04/18/2021 at 18:33 Approved by: Chelle Harris MD, PhD on 04/18/2021 at 18:35
[2021-04-18] MEDS: fentaNYL 25 MCG/PATCH TOP (18:20)
--- NOTE | 2021-04-18 21:14 | P.HP_ITS ---
History of Present Illness History of Present Illness Date Patient Seen: 04/18/21 Time Patient Seen: 19:23 Chief complaint: stage IV lung CA, c/o SOB Narrative: Louise Gale is a 65-year-old woman with recent diagnosis of metastatic lung cancer, metastatic pleural effusion, small known pericardial effusion without tamponade physiology and paroxysmal atrial fibrillation presents with acute dyspnea.? She was seen a week ago and transferred to [facility] where her pleural effusion was tapped with the definitive diagnosis of cancer made.? Awaiting records to see what additional diagnostic recommendations or treatments are pending.? With that visit her Eliquis was discontinued and she was started on Lovenox.? Amlodipine and losartan were discontinued and metoprolol was started. Patient is currently unable to swallow-all meds have been discontinued at this time. Upon admit patient is resting comfortably she states that her shortness of breath is improved and is currently on 2 L nasal cannula satting at 94%. The patient and family requested some mild IV hydration in the hopes that it may help to assist with her constipation and her difficulty in hydrating adequately. The patient denies any pain at this time and is comfortable resting her son and are at the bedside. The patient had a fentanyl patch placed down in the ED, morphine and Dilaudid as well as Ativan are ordered as needed to make the patient as comfortable as possible. The patient and the spouse both verbalized that they were open to a possible thoracentesis tomorrow if it is deemed appropriate, in the hopes of improving her air hunger and shortness of breath. Patient admitted for metastatic lung cancer-end of life comfort measures. Patient to go home with hospice on Tuesday. Per Dr. Smyth ED:Records from [facility] are available: Malignant right pleural effusion consistent with metastatic lung adenocarcinoma air hunger resolved with oxygen Pleuritic chest pain resolved with Roxanol Significant functional mobility from prior stroke with left-sided weakness, whee lchair-bound and progressive weakness secondary to new cancer diagnoses Right lung infrahilar mass suspicious for primary bronchogenic carcinoma with right middle and lower lobe collapse, multiple bilateral lung nodules suspicious for metastatic disease as well as liver abnormalities suspicious for metastatic disease Goals of care conversation was had at [facility] which indicated that comfort w as likely going to be the final decision.? Primary care appointment was scheduled for later this afternoon with consideration of hospice consult verses oncology consult.? In discussing all of her findings in her understanding of her diagnosis today she and her are both very clear that there goal is comfort.? They recognize that she is dying and she absolutely wants to at home with family and friends at the bedside.? Her biggest impairment to that at this point is air hunger causing anxiety with paroxysmal atrial fibrillation which is making the air hunger worse. -Upon admit this evening, the patients verbalized to the nurse following my admit interview that he wished his to be a full code, so that she would be alive until her grandchildren returned to [place]. I returned to the room to discuss with the spouse, patient, and son that we with to respect their wishes. I then provided education regarding the incongruence between end of life care and preventative hospital admission with full code status, as well as their expectations and goals. I made the family aware that if the patient went into cardiac arrest she would have a high probability of intubation, and if she was intubated none of the grandchildren would be allowed to come into the hospital to see her due to COVID restrictions, and that she would not be able to go home on a ventilator. We would also be unable to provide the aggressive appropriate pain management required for her comfort, as it will be highly probable to decrease her respiratory function. After an indepth discussion, enf orcing that we wish to respect the wishes of the patient and the family at all times, they determined to continue as a DNR with end of life comfort measures with the goal that the patient will return home on Tuesday under hospice care in which she can be surrounded by her grandchildren and family. Patient History Medical History (Updated 04/18/21 @ 21:43 by WILL Young) Anterior cerebral artery aneurysm Metastatic primary lung cancer STEMI (ST elevation myocardial infarction) Surgical History Status post laparoscopy Family & Social History Family History Father Hypertension Social History: household members spouse Prior Living Arrangements House Safety & Behavioral: Feels Safe in Current Yes Environment Been Physically Hurt or No Threatened By a Person Suicidal Ideation Description None Suicide Plan Description No Plan Tobacco & Substance use: Tobacco type cigarettes Smoking Status Former smoker alcohol intake never alcohol intake frequency other Substance Use Type does not use Meds Home Medications and Allergies Home Medications Medication Instructions Recorded Confirmed Type metoprolol succinate 25 mg 25 mg PO QDAY #0 01/24/17 04/18/21 History tablet,extended release 24 hr (Toprol XL) Allergies Allergy/AdvReac Type Severity Reaction Status Date / Time cefazolin [CEFAZOLIN] Allergy Unknown Verified 04/16/21 10:06 questionable Allergy Unknown unable to Uncoded 12/27/18 14:38 enter using this tool - SEE PMHx Review of Systems Review of Systems Narrative: All 12 point systems reviewed with the patient and are negative except otherwise documented. Exam Vital Signs (past 8 hours): - 04/18/21 16:50 04/18/21 17:05 04/18/21 17:31 Temperature 97 F L Pulse Rate 59 L 63 119 H Respiratory Rate 30 H Blood Pressure 126/67 93/63 Pulse Oximetry 92 98 98 04/18/21 17:50 04/18/21 18:00 04/18/21 18:35 Temperature 96.9 F L Pulse Rate 114 H 59 L 65 Respiratory Rate 24 19 Blood Pressure 96/58 L 105/60 Pulse Oximetry 97 99 98 04/18/21 19:43 04/18/21 20:17 Temperature Pulse Rate Respiratory Rate Blood Pressure Pulse Oximetry 95 97 Oxygen Delivery Method Nasal Cannula Oxygen Flow Rate 4 Narrative Exam Narrative: General:? Frail, cachectic, weak HEENT:? Moist mucous membranes, normal sclera with reactive pupils, Neck:? No JVD, supple Respiratory:? Lungs with diminished breath sounds right middle lobe down, scattered wheeze and mild crackles upper lung sounds right and left lobes Cardiac:? Tachycardic and irregular, no murmurs no bruits Abdomen:? Scaphoid, nontender, good bowel tones, no flank pain Skin:? Frail, thin, multiple bruises Neurologic:? Left-sided hemiparesis globally weak Extremities:? No trauma, Psych:? Cooperative, appropriate insight and affect Objective Labs Labs: Laboratory Results - last 24 hr 04/18/21 17:03 SARS-CoV-2 (PCR) Negative Assessment & Plan Assessment and plan (1) History of CVA with residual deficit: Status: Acute Assessment & Plan narrative: Louise Gale is a 65-year-old woman with recent diagnosis of metastatic lung cancer, metastatic pleural effusion, small known pericardial effusion without tamponade physiology and paroxysmal atrial fibrillation presents with acute dyspnea. Patient is admitted for comfort care and end of life measures with scheduled consult and home with hospice on Tuesday04/20/2021. 1. Metastatic lung cancer, metastatic pleural effusion, small known pericardial effusion with tamponade physiology and proximal atrial fibrillation resulting in acute dyspnea, acute on chronic, End-of-Life COMFORT Measures, acute, present on admission Patient's spouse tessy and son are at the bedside. -End-of-Life Comfort Measures. -maintain oxygen saturation to patient's comfort, respiratory consult if needed -Currently on 4L N/C-97% denies SOB at this time. -Pain management-fentanyl patch [address], morphine, Dilaudid, or Ativan as needed as needed for anxiety or pain management. -patient & family requested IV gentle hydration to hopefully assist with feeling of dehydration & constipation-LR @21cc/hr -Holding all patient meds per request & difficulty swallowing. -CXR:Today ?Moderate-sized right-sided pleural effusion increased in size.?Pulmonary edema suspicious for CHF/fluid overload. Masslike opacity in the right perihilar lung suspicious for neoplastic process not significantly changed where visualized.? -patient and family are open to possible thoracentesis tomorrow if it is found to be beneficial to the patient's respiratory function comfort, Dr. Mora will reassess tomorrow. Code status:DNR- as verbalized by the spouse, son, and the patient. Surrogate decision maker: Spouse Tessy COVID PCR:Negative COVID vaccination: Unknown DVT/VTE prophylaxis:None End-of-Life Comfort Measures Disposition: Patient admitted for observation expected length of stay less than 2 midnights to be discharged home on 04/20/2021 on hospice. I have utilized all available immediate resources to obtain, update, or review the patient's current medications. I confirmed that the patient's advanced care plan is present, Code status is documented and/or surrogate decision maker is listed in the patient's medical record. Time Spent With Patient Critical Care time: I spent a total of [] minutes of critical care time on this patient's care today; this time is exclusive of procedural time. Quality VTE Deep Vein Thrombosis/Pulmonary Embolism Present on Admission: No
[2021-04-18] MEDS: LACTATED RINGERS 500 ML 21 ML IV (21:57)
[2021-04-19 00:06] VITALS: BP 101/58; PULSE 70; RESP 20; O2SAT 96
[2021-04-19] MEDS: ALBUTEROL 2.5 MG/3 ML NEB (ADULT) INH ×2 (00:24→18:47)
[2021-04-19] MEDS: MORPHINE 2 MG/ML INJ IV ×4 (00:28→18:46)
[2021-04-19 00:33] VITALS: PULSE 91; RESP 24; O2SAT 97
[2021-04-19] MEDS: MORPHINE 10 MG/ML INJ INH (00:53)
[2021-04-19 07:35] VITALS: BP 113/49; PULSE 61; RESP 14; TEMP 36.3; O2SAT 95
--- NOTE | 2021-04-19 09:28 | CM.DANOTE ---
Addendum entered by Jaz Kitchen R.N. 04/19/21 12:15: Was able to meet with patient's spouse, Jordan. He indicated, it was such a fast phone call from hospice on the informational visit, was a lot to take in. Explained to him hospice, and how it is covered under Medicare, and what they would provide for patient. Included the team that would be seeing patient, nursing, CABIN SERVICE AGENT, spiritual counselor and bath aide. Let him know that all equipment will be ordered in the am, and is covered by hospice. Dr. Mora indicated that patient will be having thoracentesis before leaving, for comfort, uncertain if it will be today or in the am. is comfortable taking patient home once equipment is set up. He is aware that hospice nurse may not come until Tue, but if there is a cancellation, can come sooner. He seems comfortable taking her home once equipment is placed, after thoracentesis and if medications are on board. Discussed mode of transportation, and spouse and son, Andrew, are aware that she will need to go BLS, and cost is not an issue. Will not be able to set up transportation for tomorrow as of yet, for will depend upon when equipment arrives, and her procedure. Gave patient's spouse a [facility] brochure as well. DCP will need to follow up in the am with [facility] to inquire when equipment can be ordered. Original Note: DCP: Case received, EMR reviewed and met with patient. Son was at bedside, spouse was not yet in the room. Introduced self and role. Was able to get some information regarding patient's baseline condition at home prior to hospitalization. Other medical information was available in patient's chart. DCP assessment completed with information currently available. Patient is a 65 year old female who admitted yesterday afternoon to the care of the hospitalist team. PCP: Dr. Bridget Clemons. Payer: confirmed: Medicare/ for Life. Patient came to the hospital via ambulance secondary to having increased shortness of breath and discomfort. Patient holds recent diagnosis of lung cancer, which was diagnosed when patient was recently at [facility]. She was given neb Morphine in the ER. Her CXR noted pulmonary edema. Goals have been established with patient and family for hospice and home on Tuesday. At patient's baseline, son indicated that she has no DME, she is not able to do much at this time. She is DNR, was discussed with family by hospitalist, and she is comfort care. Asked son if hospice was ordered, he indicated, it was, but they have no equipment at home to take care of her. Let son know that this case liner will call [facility] for more information. Called [facility] She indicated that phone intake was completed, but no equipment was delivered, and they have a nurse scheduled for Wed. Asked [facility] to see if they can deliver equipment in the morning, which she indicated, they will do. She asked this sales planner what patient will need. Let her know that patient will need oxygen, hospital bed, nebulizer. Asked [facility] to call if a nurse can come out sooner. Updated patient and son. Their goal is to have patient home with surrounding family. Let him know that equipment can be delivered tomorrow, and if he or is comfortable having her go home with comfort meds until hospice can start. Other option is short stay at custodial, have not yet discussed this with family, will need to meet with patient's spouse later. Patient is awake, she is also involved in conversation, oxygen in place. P: DCP to continue to follow. Plan is home with [facility] , equipment is to be delivered tomorrow. Will see if patient's family is comfortable with her going home after equipment is delivered, as long as she has comfort meds on board. Other option is short stay at custodial, as Medicare can cover up to 5 days on comfort. She would most likely need to go home with BLS. Jaz Kitchen RN/Local Announcer Discharge Planning/Care Management Discharge Assessment Start: 04/19/21 09:25 Freq: Status: Active Protocol: Document 04/19/21 09:25 (Rec: 04/19/21 09:28 [id number]) Discharge Planning Assessment Assigned Environmental Systems Coordinator Jaz Kitchen RN/Local Announcer Advance Directives? No History Provided By Family Member,Medical Record Prior Living Arrangements House Household Members spouse Type of transporation used prior to Relies on Others admit Independent with ADL's No Is patient alert and oriented? Yes Needs Assistance With Bathing,Eating,Grooming,Meal Prep,Toileting,Managing Medications,Home Chores / Shopping Caregiver for Another No Comment [facility] is supposed to be delivering equipment tomorrow, hospital bed, oxygen , nebulizer. Barriers to Discharge Yes Comment [facility] can't open until Wed unless a cancellation happens. Option is home tomorrow with equipment in place and pain meds, or short skilled stay. Discharge Plan Home Transportation Arrangement Patient may need BLS transport . Referrals Initiated Other Additional Comment [facility] . Whiteboard Updated in Patient Room with Yes name and ext. # of Environmental Systems Coordinator Review Status In Process Next Review Type Continued Stay Review
--- NOTE | 2021-04-19 14:00 | PM.PN.1 ---
Subjective Subjective Date Patient Seen: 04/19/21 Time Patient Seen: 14:00 Interval history: This is a 65-year-old female with past medical history of metastatic lung cancer with recurrent pleural effusions who was admitted for worsening shortness of breath. She continues to have shortness of breath and some air hunger, though this has improved somewhat with pain medications today. She denies any nausea or vomiting, but has loss of appetite and diffuse weakness. She has not been eating well at home. Exam Vital Signs (past 8 hours): - 04/19/21 07:35 Temperature 97.4 F L Pulse Rate 61 Respiratory Rate 14 Blood Pressure 113/49 L Pulse Oximetry 95 Oxygen Delivery Method Nasal Cannula Oxygen Flow Rate 3 Narrative Exam Narrative: General:? Frail, cachectic, weak HEENT:? Moist mucous membranes, normal sclera with reactive pupils, Neck:? No JVD, supple Respiratory:? Lungs with diminished breath sounds right middle lobe down, scattered wheeze and mild crackles upper lung sounds right and left lobes Cardiac:? RRR, no m/r/g Abdomen:? Scaphoid, nontender, good bowel tones, no flank pain Skin:? Frail, thin, multiple bruises Neurologic:? Left-sided hemiparesis globally weak Extremities:? No trauma, Psych:? Cooperative, appropriate insight and affect Objective Labs Labs: Laboratory Results - last 24 hr 04/18/21 17:03 SARS-CoV-2 (PCR) Negative [facility] Medical History (Updated 04/18/21 @ 21:43 by DAYAN Young-CHRISTINA) Anterior cerebral artery aneurysm Metastatic primary lung cancer STEMI (ST elevation myocardial infarction) Surgical History Status post laparoscopy Family History Father Hypertension Social History household members: spouse Smoking Status: Former smoker alcohol intake: never Assessment & Plan Assessment & Plan narrative: Luoise Gale is a 65-year-old woman with recent diagnosis of metastatic lung cancer, metastatic pleural effusion, small known pericardial effusion without tamponade physiology and paroxysmal atrial fibrillation presents with acute dyspnea.? Patient is admitted for comfort care and end of life measures with scheduled consult and home with hospice on Tuesday04/20/2021. 1. Metastatic lung cancer, metastatic pleural effusion, small known pericardial effusion with tamponade physiology and proximal atrial fibrillation resulting in acute dyspnea, acute on chronic, End-of-Life COMFORT Measures, acute, present on admission Patient's spouse tessy and son are at the bedside. -End-of-Life Comfort Measures. Patient is agreeable to thoracentesis for comfort relief. Discussed possible pleurex catheter placement, family seems open to this idea but patient is not. Would need to be set up through outpatient pulmonology. -maintain oxygen saturation to patient's comfort, respiratory consult if needed -Pain management-fentanyl patch [address], morphine, Dilaudid, or Ativan as needed as needed for anxiety or pain management. -patient & family requested IV gentle hydration to hopefully assist with feeling of dehydration & constipation-LR @21cc/hr -Holding all patient meds per request & difficulty swallowing. -patient and family are open to thoracentesis. Will order with plan for tomorrow. Coags ordered for IR. Code status:DNR- as verbalized by the spouse, son, and the patient. Surrogate decision maker: Spouse Tessy MONICA PCR:Negative DVT/VTE prophylaxis:None End-of-Life Comfort Measures Disposition:?Plan for discharge home on hospice, which opens on tuesday, may be able to discharge home with medications tomorrow if improved with thoracentesis. Time Spent With Patient Critical Care time: I spent a total of [] minutes of critical care time on this patient's care today; this time is exclusive of procedural time. Quality VTE Deep Vein Thrombosis/Pulmonary Embolism Present on Admission: No
[2021-04-19 16:55] VITALS: BP 114/89; PULSE 102; RESP 20; TEMP 36.6; O2SAT 97
--- NOTE | 2021-04-19 23:40 | PC.NURSE ---
Evening Shift Note- Patient refused to have brief changed this shift.
[2021-04-20] MEDS: MORPHINE 2 MG/ML INJ IV ×3 (00:36→12:25)
[2021-04-20 00:37] VITALS: PULSE 70; RESP 26; O2SAT 97
[2021-04-20] MEDS: ALBUTEROL 2.5 MG/3 ML NEB (ADULT) INH ×2 (00:37→09:09)
[2021-04-20] MEDS: LORazepam 2 MG/ML INJ 1 MG IV (01:10)
[2021-04-20 05:59] LABS: Prothrombin Time 11.1 SECONDS (10.1-12.7)
[2021-04-20 06:01] LABS: PTT Partial Thromboplastin Tim 29 SECONDS (26.4-36.2)
[2021-04-20 08:00] VITALS: O2SAT 96
--- NOTE | 2021-04-20 09:00 | DI.US.S_ITS ---
PROCEDURE: US CHEST COMPARISON: None. INDICATIONS: PLEURAL EFFUSION FINDINGS: Small right-sided pleural fluid collection. Right-sided pleural fluid collection is insufficient in volume to safely perform thoracentesis. IMPRESSION: Small right-sided pleural fluid collection is insufficient for thoracentesis. Dictated by: Chelle Harris MD, PhD on 04/20/2021 at 10:23 Approved by: Chelle Harris MD, PhD on 04/20/2021 at 10:24
[2021-04-20 09:21] VITALS: PULSE 73; RESP 20; O2SAT 95
--- NOTE | 2021-04-20 10:57 | CM.DPNOTE ---
Called [facility] per Aleshia for BLS transport to patient's address at 1230 04/20/21. Ирина Samano CM Asst.
--- NOTE | 2021-04-20 11:09 | P.DS_ITS ---
History of Present Illness History of Present Illness Date Patient Seen: 04/20/21 Chief complaint: stage IV lung CA, c/o SOB Narrative: Baljinder is a 65-year-old woman with recent diagnosis of metastatic lung cancer, metastatic pleural effusion, small known pericardial effusion without tamponade physiology and paroxysmal atrial fibrillation presents with acute dyspnea.? She was seen a week ago and transferred to [facility] where her pleural effusion was tapped with the definitive diagnosis of cancer made.? Awaiting records to see what additional diagnostic recommendations or treatments are pending.? With that visit her Eliquis was discontinued and she was started on Lovenox.? Amlodipine and losartan were discontinued and metoprolol was started. Patient is currently unable to swallow-all meds have been discontinued at this time. Upon admit patient is resting comfortably she states that her shortness of breath is improved and is currently on 2 L nasal cannula satting at 94%.? The patient and family requested some mild IV hydration in the hopes that it may help to assist with her constipation and her difficulty in hydrating adequately.? The patient denies any pain at this time and is comfortable resting her son and are at the bedside.? The patient had a fentanyl patch placed down in the ED, morphine and Dilaudid as well as Ativan are ordered as needed to make the patient as comfortable as possible.? The patient and the spouse both verbalized that they were open to a possible thoracentesis tomorrow if it is deemed appropriate, in the hopes of improving her air hunger and shortness of breath.? Patient admitted for metastatic lung cancer-end of life comfort giorgio sures.? Patient to go home with hospice on Tuesday. Per Dr. Smyth ED:Records from [facility] are available: Malignant right pleural effusion consistent with metastatic lung adenocarcinoma air hunger resolved with oxygen Pleuritic chest pain resolved with Roxanol Significant functional mobility from prior stroke with left-sided weakness, wheelchair-bound and progressive weakness secondary to new cancer diagnoses Right lung infrahilar mass suspicious for primary bronchogenic carcinoma with right middle and lower lobe collapse, multiple bilateral lung nodules suspicious for metastatic disease as well as liver abnormalities suspicious for metastatic disease Goals of care conversation was had at [facility] which indicated that comfort was likely going to be the final decision.? Primary care appointment was scheduled for later this afternoon with consideration of hospice consult verses oncology consult.? In discussing all of her findings in her understanding of her diagnosis today she and her are both very clear that there goal is comfort.? They recognize that she is dying and she absolutely wants to at home with family and friends at the bedside.? Her biggest impairment to that at this point is air hunger causing anxiety with paroxysmal atrial fibrillation which is making the air hunger worse. -Upon admit this evening, the patients verbalized to the nurse following my admit interview that he wished his to be a full code, so that she would be alive until her grandchildren returned to [place]. I returned to the room to discuss with the spouse, patient, and son that we with to respect their wishes. I then provided education regarding the incongruence? between end of life care and preventative hospital admission with full code status, as well as their expectations and goals.? I made the family aware that if the patient went into cardiac arrest she would have a high probability of intubation, and if she was intubated none of the grandchildren would be allowed to come into the hospital to see her due to COVID restrictions, and that she would not be able to go home on a ventilator.? We would also be unable to provide the aggressive appropriate pain management required for her comfort, as it will be highly probable to decrease her respiratory function.? After an indepth discussion, enforcing that we wish to respect the wishes of the patient and the family at all times, they determined to continue as a DNR with end of life comfort measures with the goal that the patient will return home on Tuesday under hospice care in which she can be surrounded by her grandchildren and family. Discharge Providers Provider Date of admission: 04/18/21 18:54 Discharge Date: 04/20/21 Primary care physician: Bridget Clemons MD Consults: 04/18/21 19:31 Consult to Discharge Planning Routine Comment: Hospice to go home 04/19/21 00:06 Consult to Hospice Referral Urgent Comment: Discharge provider: Josephine Longo MD Summary Hospital Course Discharge Diagnosis: 1. Acute hypoxic respiratory failure 2. Right Lung Collapse 3. Metastatic Adeno Ca of the Lung 4. Severe protein calorie malnutrition 5.Parosxysmal Atrial Fibrillation 6. History of STEMI Hospital Course: Patient was admitted to the hospital for treatment of shortness of breath, air hunger, and pain. She was placed on a fentanyl patch with some relief of her symptoms.She had her family elected to undergo comfort measures only and the patient was made DNR. It was felt that she had a right pleural effusion and that thoracentesis may provide benefit in terms of her shortness of breath. She had the ultrasound which confirmed the collapsed lung but no fluid to drain. The patient and family requested hospice consultation to assist with her end of life care. As she was unable to get the thoracentesis, arrangements were made for her to discharge home with hospice. The patient and family wanted her to return home as soon as possible. I discussed this with her Jordan and son. Hospice equipment was delivered today. The patient will be discharged home with hospice planing to officially open her case on . Medications have been written. Patient will be discharged home for end of life care Status at Discharge Cognitive/behavioral status at discharge: oriented and calm Functional status at discharge: bed bound Overall status at discharge: patient is not back to baseline Exam Vital Signs (past 8 hours): - 04/20/21 08:00 04/20/21 09:21 Pulse Rate 73 Respiratory Rate 20 Pulse Oximetry 96 95 Oxygen Delivery Method Nasal Cannula Oxygen Flow Rate 4 Narrative Exam Narrative: cachetic ill appearing female lying in bed Const Other: poor appearance, patient appears preterminal, no complaints of pain Resp Other: Lungs: decreased breath sounds Cardio Other: RRR nl Sl S2 GI Other: abd: soft/ non tender Extrem Other: no edema Objective Labs Labs: Laboratory Results - last 24 hr 04/20/21 05:35 PT 11.1 INR 1.0 APTT 29 D [facility] Medical History (Updated 04/18/21 @ 21:43 by WILL Young) Anterior cerebral artery aneurysm Metastatic primary lung cancer STEMI (ST elevation myocardial infarction) Surgical History Status post laparoscopy Family History Father Hypertension Social History household members: spouse Smoking Status: Former smoker alcohol intake: never Discharge Assessment & Plan Assessment and Plan Assessment: 1. Acute on Chronic Hypoxic Respratory Failure 2. Right Lung Collapase 3. Metatstatic adeno ca of the lung 4. parosxymal atrial fibrillation Plan of Treatment: Home with Hospice Discharge Plan Discharge Plan Patient Disposition: Hospice - Home Discharge orders & Medications Discharge Orders: Discharge (Order); Ordered 04/20/21 Ordered By: Josephine Longo Prescriptions: New fentanyl 25 mcg/hr patch 72 hour 1 patch transdermal Q72H Qty: 5 RF: 0 lorazepam [Ativan] 1 mg tablet 1 mg PO TID PRN (Reason: anxiety) Qty: 20 RF: 0 Discontinued metoprolol succinate [Toprol XL] 25 MG tablet extended release 24 hr 25 mg PO QDAY Qty: 0 RF: 0 Follow up/Referrals: Bridget Clemons MD [Primary Care Provider] - Discharge Health Status Multidrug resistant organism: No MDRO Diet/Activity/Treatments Diet: Diet as Tolerated Oxygen: as needed Skin/Wound/Dressing Care Report to your healthcare provider any signs of infection, such as:: increased pain Discharge Data Primary Care Provider: Bridget Clemons Attending Provider: Magdiel Mora VTE Deep Vein Thrombosis/Pulmonary Embolism Present on Admission: No
--- NOTE | 2021-04-20 11:09 | CM.DPC ---
Addendum entered by VALENTINA Florez 04/20/21 12:07: ADD: completed the POLST form and discussion had been had bedside at admit and throughout pt's admission and SW met bedside with pt, son, grandson, and then spouse via Facetime and discussed need of POLST for ambulance transport and all agreeable with Comfort Measures only and pt alert and oriented and requested to sign POLST herself. GERMAINE made copy and placed on BLS form and placed original in folder to go home with pt. ANKITA Gifford kindly faxed scripts, d/c summ, and POLST to [facility] to review. GERMAINE updated group underwriter and RN and RN will confirm that pt already has home oxygen set up from baseline and if not then will contact RT right away. Family aware that they will need to pick pack worker pt's Rx at their preferred pharmacy at [facility] prior to Hospice opening on Tue. BF Original Note: DCP Discharge Home Comfort Care Per MD, pt remains hospice appropriate and plan is to have thoracentesis today for comfort for better breathing and then d/c home with comfort meds and [facility] to [facility] on 04[facility]22[facility]21. GERMAINE spoke to pt's spouse who had not heard yet from [facility] on DME delivery time yet today. GERMAINE called [facility] and they will call [facility] and make sure they have the updated cell phone for spouse for delivery today and will likely be called after 0900. Spouse received a call and delivery of DME to happen around 1000 this morning and spouse left to be home and son bedside with pt. Per RN, thoracentisis not happening today as pt now has completely collapsed lung and not much fluid collection. GERMAINE updated MD and she then met bedside with pt and son and called spouse and all are agreeable with d/c home as soon as can happen today to be with family now that [facility] DME delivered. ANKITA Gifford kindly called [facility] and scheduled transport home for 1230 to home today on Comfort. BLS transport form completed yesterday and SW placed on chart with facesheet attached for [facility] transport but no POLST form available. SW called spouse and updated on time of transport and he is agreeable and appreciative. SW inquired about POLST and spouse states they do not have one. GERMAINE updated RN and STRAIGHTENING MACHINE FEEDER and group underwriter on time of transport today. Plan: SW to follow for getting POLST form completed if possible for pt's BLS transport home with Hospice to open on Tue04/20/21 and faxing d/c summary to [facility]. VALENTINA Florez
--- NOTE | 2021-04-20 12:03 | CM.DPNOTE ---
Faxed DC sum, RX's and POLST to [facility] per Aleshia and conf. received. рИина Samano CM Asst.
--- NOTE | 2021-04-20 13:56 | PC.NURSE ---
Pt discharged home with hospice. Administered MS 2 mg IV just prior to [facility] transfer for increased respiratons. IV discontinued. REviewed home medications with son and . Scripts for Fentanyl and Lorazepam given to son Andrew. Brief changed just prior to leaving. All belongings with son/patient.
== END 2021-04-20 12:30 | disposition hospice, home (50) ==
LOC: ED 18:23 → AC 18:55
PROVIDERS: Admitting Provider Internal Medicine; Emergency Provider Emergency Medicine; PCP Internal Medicine; Referring Provider Emergency Medicine; Visit Provider Internal Medicine
DX: C34.92 Malignant neoplasm of unspecified part of left bronchus or lung (principal); Z51.5 Encounter for palliative care; I48.0 Paroxysmal atrial fibrillation; J96.01 Acute respiratory failure with hypoxia; J98.19 Other pulmonary collapse; Z87.891 Personal history of nicotine dependence; E43 Unspecified severe protein-calorie malnutrition; I25.2 Old myocardial infarction; Z66 Do not resuscitate; Z20.822 Contact with and (suspected) exposure to COVID-19
CPT/HCPCS: 36592; 71045; 76604; 85610; 85730; 87635; 94640; 94760; 96374; 96375; 96376; 99285; C9803; G0378; J2060; J2270; J7613